=== PATIENT | female | born 1975 | race Native Hawaiian/Other Pacific Islander ===

== ENCOUNTER 2025-03-26 13:11 | Emergency (ER) | payer MEDICAID, SELFPAY ==
[2025-03-26 13:13] VITALS: BMI 21.1
[2025-03-26 13:24] VITALS: BP 132/83; PULSE 65; RESP 17; TEMP 36.6; O2SAT 100; BMI 21.1
--- NOTE | 2025-03-26 13:31 | EKG_ITS ---
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
--- NOTE | 2025-03-26 13:31 | XR_ITS ---
Examination: CT chest, without intravenous contrast. CT abdomen, without intravenous contrast. CT pelvis, without intravenous contrast. 2-D sagittal and coronal reconstructions. 3-D reconstructions. Date and time of exam:March 26, 2025 1438 hours INDICATIONS: Chest pain radiating to the back with abdomen pain beginning 2 days ago CTDI vol (mgy) 6.53 DLP (MGycm)459 Technique: Multiple CT images, 3.0 mm slice thickness, obtained chest, abdomen, pelvis, with the high-resolution 64 slice scanner.. Sagittal and coronal 2-D reconstructions are obtained. 3-D reconstructions Low dose protocols were performed. One or more of the following dose reduction techniques were used; automated exposure control, adjustment of the mA and/or KV according to patient size, use of iterative reconstruction technique. Findings: 6 mm right thyroid nodule No thoracic aortic aneurysm dilatation Pulmonary artery segments are not enlarged No paratracheal tracheobronchial or bronchopulmonary adenopathy No pneumonia or pulmonary edema or pleural disease No visualized liver or splenic lesion Gallbladder wall appears thickened and edematous with sludge versus stones No pancreatic or adrenal mass Severe scarring both kidneys, no hydronephrosis or ureteral calculi No pericecal inflammatory change No diverticulitis Atrophic uterus Bladder intact Grade 1 anterolisthesis L5 on S1 IMPRESSION: 6 mm right thyroid nodule, recommend elective thyroid sonography follow-up No pneumonia or pulmonary edema or pleural disease Recommend hepatobiliary sonography to confirm acute cholecystitis Severe renal parenchymal scar formation, no hydronephrosis renal or ureteral calculi
--- NOTE | 2025-03-26 13:31 | PD.EDRME ---
Rapid Medical Screening Exam RME Arrival date/time: 03/26/25 13:11 49-year-old female presents to the emergency department today for complaints of back pain, chest pain and abdominal pain Chief Complaint: Back Pain/Injury Time Seen by Provider: 03/26/25 13:26 Vital signs: Vital Signs Temperature 97.8 F 03/26/25 13:24 Pulse Rate 65 03/26/25 13:24 Respiratory Rate 17 03/26/25 13:24 Blood Pressure 132/83 H 03/26/25 13:24 Pulse Oximetry (%) 100 03/26/25 13:24 Oxygen Delivery Method Room Air 03/26/25 13:24
[2025-03-26 13:54] LABS: Collection Type, Urine Clean Catch
[2025-03-26 14:06] LABS: HCG Qualitative,Urine Negative
[2025-03-26 14:06] LABS: Basophils % (Auto) 0 % (0-2.5); Eosinophils % (Auto) 0 % (0-10); Hemoglobin 13.5 g/dL (12.0-16.0); Immature Granulocytes % (Auto) 1 % (0-0); Immature Granulocytes Auto 0.07 Thou/mm3 (0.00-0.00); Lymphocytes # (Auto) 1.1 Thou/mm3 (1.0-4.8); Lymphocytes % (Auto) 9 % (10-50); Mean Corpuscular HGB Conc 34.6 g/dl (31.0-37.0); Mean Corpuscular Volume 84 fL (80-100); Monocytes # (Auto) 0.8 Thou/mm3 (0.0-0.8); Monocytes % (Auto) 6 % (0-12); Neutrophils # (Auto) 10.9 Thou/mm3 (1.8-7.7); Neutrophils % (Auto) 84 % (37-80); Nucleated Red Blood Cell % 0 /100 WBC (0); Platelet Count 256 Thou/mm3 (140-440); Red Blood Count 4.65 Miln/mm3 (4.00-5.20)
[2025-03-26 14:24] LABS: Alanine Aminotransferase 12 U/L (10-49); Albumin, Serum 4.4 gm/dL (3.5-5.0); Albumin/Globulin Ratio 1.3 (1.2-2.2); Alkaline Phosphatase 98 U/L (46-116); Anion Gap 7 (7-16); Aspartate Amino Transferase 11 U/L (0-34); BUN/Creatinine Ratio 23 Ratio (12-20); Bilirubin,Total 0.4 mg/dL (0.3-1.2); Blood Urea Nitrogen 14 mg/dL (9-23); Calcium 8.8 mg/dL (8.3-10.6); Calcium (Corrected) 8.8 mg/dL (8.5-10.1); Carbon Dioxide 29.8 mMol/L (20.0-31.0); Chloride 99 mMol/L (98-107); Creatinine (Component) 0.6 mg/dL (0.6-1.3); Estimated Creatinine Clearance 107.2 mL/min (>60); Globulin 3.4 gm/dL (2.3-3.5); Glucose 120 mg/dL (74-106); Lipase 36 U/L (12-53); Osmolality,Calculated 273 (275-295); Potassium 4.1 mMol/L (3.4-5.1); Sodium 136 mMol/L (136-145); Total Protein 7.8 gm/dL (5.7-8.2); Troponin I < 0.002 ng/mL (0.0-0.045); eGFR > 60 See Note
[2025-03-26 15:27] VITALS: BP 132/82; PULSE 69; RESP 17; TEMP 36.8; O2SAT 99
[2025-03-26 15:37] LABS: Bacteria,Urine Rare; Bilirubin,Urine Negative (Negative); Blood,Urine Trace-Intact (Negative); Clarity,Urine Clear (Clear/Hazy); Color,Urine Lt Yellow (Lt Yel-Yel); Glucose, Urine Negative (Negative); Ketones,Urine Negative (Negative); Leukocyte Esterase,Urine 2+ (Negative); Nitrite,Urine Negative (Negative); PH,Urine 7.5 (5.0-7.0); Protein,Urine Negative (Neg - Trace); RBC,Urine 2 /hpf (0-3); Squamous Epithelial Cell,Urine 1 /hpf (0-5); Urobilinogen,Urine 0.2 mg/dL (0.0-1.0); WBC,Urine 2 /hpf (0-5)
[2025-03-26 15:38] LABS: Culture Indicated,Urine Yes
--- NOTE | 2025-03-26 17:05 | EDNOTE_ITS ---
<Statement entered by Michelle Sen MD - 04/06/25 06:15> As co-signing physician, I was present and available for consult prn. I concur with the plan and care as documented by the midlevel provider. ED Back Injury Pain RME/HPI General Chief Complaint: Back Pain/Injury Stated Complaint: BACK PAIN RADIATING TO CHEST & ABDOMEN Time Seen by Provider: 03/26/25 13:26 Arrival date/time: 03/26/25 13:11 RME / HPI RME / HPI Narrative: 49-year-old female patient with no significant medical history, came in for evaluation regarding upper back pain. Onset of symptoms earlier today as upper back pain, described as dull ache, severity moderate. Pains radiates to the front and upper abdomen. Patient denies any shortness of breath denies any tachycardia. Denies any fever. Denies any trauma to the back denies any other complaints. No medications taken prior to arrival. Related Data Previous Rx's ?Medication ?Instructions ?Recorded cyclobenzaprine 10 mg tablet 10 mg PO TID PRN muscle s pasm #20 03/26/25 tabs tramadol 37.5 mg-acetaminophen 325 1 tab PO BID PRN pa in #20 tabs 03/26/25 mg tablet tramadol 37.5 mg-acetaminophen 325 1 tab PO Q6H PRN pa in 5 days #20 25 mg tablet tabs Allergies Allergy/AdvReac Type Severity Reaction Status Date / Time Sulfa (Sulfonamide Allergy Verified 03/26/25 13:13 Antibiotics) Review of Systems Review of Systems Narrative Review of Systems: Review of system reviewed and within normal limits except mentioned in HPI ED Exam Narrative Physical exam: VITAL SIGNS: Reviewed. GENERAL APPEARANCE: Alert and interactive, follows commands, no acute distress, HEAD AND FACE: Non-traumatic. ENT: PERRL, pink conjunctivitis, eyelid no trauma, Mucous membrane moist. NECK: Supple, nontender, no nuchal rigidity. CHEST: No tenderness, no crepitus, no paradoxical movement, no retractions. LUNGS: Clear, well ventilated, symmetric, no rales, no wheezing, no ronchi, no stridor, good breath sounds bilaterally. HEART: Regular rate, regular rhythm, no murmur, no gallops. ABDOMEN: Soft, positive bowel sounds, nondistended, no guarding, nontender, no r ebound, no masses, RECTAL: Deferred. GENITAL: Deferred. NEUROLOGICAL: Gross motor function intact sensory function intact, Appropriate for age. MUSCULOSKELETAL: Upper back tenderness, no redness no swelling, full range of motion. EXTREMITIES: Nontender, full range of motion. SKIN: Color pink, dry, no rash, no lacerations, no abrasions, no contusions. LYMPHATICS: Deferred. Course Quality Measures none Orders Category Date Time Status EKG (ED ONLY) *Do not use* NOW Care 03/26/25 13:[address] chest abdomen pelvis wo Stat Exams 03/26/25 13:31 Completed EKG (ED Only) Stat Exams 03/26/25 13:31 Draft CBC Stat Lab 03/26/25 13:50 Completed Comprehensive Metabolic Panel Stat Lab 03/26/25 13:50 Completed HCG Qualitative,Urine Stat Lab 03/26/25 13:47 Completed Lipase Stat Lab 03/26/25 13:50 Completed Troponin I Stat Lab 03/26/25 13:50 Completed UA, C/S IF [Urinalysis, C/S if Indicated] Stat Lab 03/26/25 13:47 Completed Urine Culture Stat Lab 03/26/25 13:47 Received CYCLObenzaPRINE [Flexeril] Med 03/26/25 16:56 Discontinued 10 mg PO X1 ONE Ketorolac Inj [Toradol Inj] Med 03/26/25 16:56 Discontinued 30 mg IM X1 ONE Vital Signs Vital signs: Vital Signs Temperature 97.8 F 03/26/25 13:24 Pulse Rate 65 03/26/25 13:24 Respiratory Rate 17 03/26/25 13:24 Blood Pressure 132/83 H 03/26/25 13:24 Pulse Oximetry (%) 100 03/26/25 13:24 Oxygen Delivery Method Room Air 03/26/25 13:24 Back Pain / Injury MDM Narrative MDM Narrative:: 49-year-old female patient with no significant medical history, came in for evaluation regarding upper back pain. Onset of symptoms earlier today as upper back pain, described as dull ache, severity moderate. Pains radiates to the front and upper abdomen. Patient denies any shortness of breath denies any tachycardia. Denies any fever. Denies any trauma to the back denies any other complaints. No medications taken prior to arrival. CBC showed slight leukocytosis of 1300. CMP unremarkable troponin is normal urinalysis no UTI EKG showed normal sinus rhythm, ventricular rate of 65 bpm, no ST segment elevation or depression noted. CT scan of the chest abdomen and pelvis showed 6 mm right thyroid nodule, recommend elective thyroid sonography follow-up No pneumonia or pulmonary edema or pleural disease Recommend hepatobiliary sonography to confirm acute cholecystitis Severe renal parenchymal scar formation, no hydronephrosis renal or ureteral calculi Patient received Toradol IM and Flexeril with significant improvement pain Patient was advised to return to emergency room for worsening of symptoms. Patient agrees with the plan. Patient data External records reviewed:: None Clinical information provided by:: patient Social determinants that could affect healthcare access:: none Patient has the following chronic illnesses:: None How is presenting disease/condition affected by chronic disease/condition?: no chronic disease Evaluation data The following diagnostics were reviewed and interpreted by me:: lab results, radiology exam(s) and EKG tracing(s) Lab and/or radiology exams considered but not ordered:: None Interpretation Summary: See results MDM Medications / Prescriptions Medications or Prescriptions considered but not ordered:: None Medication administrations:: Medication Administration History Discontinued Medications Cyclobenzaprine HCl (Cyclobenzaprine 5 Mg Tablet) 10 mg PO X1 ONE Stop: 03/26/25 16:57 Ketorolac Tromethamine (Ketorolac Inj 60 Mg/2 Ml Vial) 30 mg IM X1 ONE Stop: 03/26/25 16:57 Toradol and Flexeril Consultations Consultation(s) initiated? (list below): No Diagnosis Differential diagnosis back pain/injury: thoracic back pain and other (Pneumonia, biliary colic renal colic) Most likely diagnosis given after review of the tests above:: Thoracic back pain Admission Indicated Admission indicated?: not indicated Admission Request Was there a request for admission?: No Disposition Plan Disposition Plan: Discharge Discharge Attestation Discharge Attestation: The patient was given an opportunity to ask questions and understood the discharge instructions. Discharge instructions specifically effects, indications for sooner follow up or return to the emergency department, and the expected course of current diagnosis. Patient condition: Stable Discharge Plan Plan Patient Disposition: HOME (Self Care) Discharge Disposition comment: stable Prescriptions/Referrals Prescriptions/Med Rec: New tramadol-acetaminophen 37.5-325 mg tablet 1 tab PO BID PRN (Reason: pain) Qty: 20 0RF cyclobenzaprine 10 mg tablet 10 mg PO TID PRN (Reason: muscle spasm) Qty: 20 0RF tramadol-acetaminophen 37.5-325 mg tablet 1 tab PO Q6H PRN (Reason: pain) 5 Days Qty: 20 0RF Referrals: No Primary/Family,Physician [Primary Care Provider] - In 1 week Problem List Clinical Impression: Thoracic back pain Patient/Caregiver Discharge Instructions Discharge Activity: activity as tolerated Education Materials: Medicine for Pain, ED Back Pain (Acute or Chronic) Additional Instructions: Thank you for the opportunity for serving you today. You are stable for discharged . You are advised to: Follow-up with your PCP in 1 to 2 days Return to ED for worsening of symptoms Increase oral fluids Take medication as prescribed Print Language: Slovak Stand Alone Forms: Yeni Award Info., Patient Portal Info Letter RENITA/LA Supervising Physician RENITA/LA Supervising Physician: MD Ravin
[2025-03-26] MEDS: KETOROLAC INJ 60 MG/2 ML VIAL 30 MG IM (17:11)
[2025-03-26] MEDS: CYCLObenzaPRINE 5 MG TABLET 10 MG PO (17:11)
[2025-03-26 17:17] VITALS: BP 124/75; PULSE 77
== END 2025-03-26 17:18 | disposition home or self-care (01) ==
PROVIDERS: Nurse Practitioner Primary Care; Emergency Provider Emergency Medicine
DX: M54.6 Pain in thoracic spine (principal); E04.1 Nontoxic single thyroid nodule; N28.89 Other specified disorders of kidney and ureter; R94.31 Abnormal electrocardiogram [ECG] [EKG]; R07.9 Chest pain, unspecified; D72.829 Elevated white blood cell count, unspecified
CPT/HCPCS: 36415; 71250; 74176; 80053; 81001; 81025; 83690; 84484; 85025; 87077; 87086; 87186; 93005; 96372; 99284; J1885; A9270

== ENCOUNTER → 2025-04-16 | Outpatient (CLI) | payer MEDICAID, SELFPAY ==
--- NOTE | 2025-04-16 09:15 | XR_ITS ---
Examination: Thyroid sonography complete TECHNIQUE: Grayscale sonographic images thyroid lobes Date and time: April 16, 2025 0921 hours INDICATIONS: CT chest March 26, 2025 6 mm right thyroid nodule FINDINGS: Right thyroid 4.6 cm Upper pole cyst 3 x 3 mm Complex lower pole cyst 11 x 9 mm Left thyroid 4.3 cm Upper pole nodule 7 x 6 mm Lower pole cyst 4 x 5 mm IMPRESSION: Small upper pole left thyroid nodule
== END | disposition home or self-care (01) ==
LOC: CDIM 09:07
PROVIDERS: PCP Nurse Practitioner Family; Referring Provider Nurse Practitioner Family; Visit Provider Nurse Practitioner Family
DX: E04.1 Nontoxic single thyroid nodule (principal)
CPT/HCPCS: 76536

== ENCOUNTER → 2025-04-26 | Outpatient (CLI) | payer MEDICAID, SELFPAY ==
--- NOTE | 2025-04-26 09:42 | XR_ITS ---
Examination: Abdomen sonogram, complete Date and time of exam: April 26, 2025 0951 hours INDICATIONS: Diagnosis cholecystitis. Technique: Multiple real-time grayscale transabdominal sonographic images of the abdomen have been obtained. Findings: Multiple gallstones Gallbladder wall is thickened 0.7 cm with edema Common bile duct 0.4 cm Pancreatic head 1.4 cm Aorta not enlarged Liver 15.7 cm no focal liver lesions Normal hepatopedal portal venous flow Patent IVC Right kidney 8.6 cm in the cortex 1.8 cm Left kidney 9.3 cm cortex 1.9 cm 14 x 16 mm lower pole left renal cyst No hydronephrosis Spleen 9.2 cm IMPRESSION: Calculus cholecystitis
== END | disposition home or self-care (01) ==
LOC: CDIM 09:21
PROVIDERS: PCP Nurse Practitioner Family; Referring Provider Nurse Practitioner Family; Visit Provider Nurse Practitioner Family
DX: K80.10 Calculus of gallbladder with chronic cholecystitis without obstruction (principal); N28.1 Cyst of kidney, acquired
CPT/HCPCS: 76700

== ENCOUNTER 2025-05-16 17:51 | Inpatient (IN) | payer MEDICAID, SELFPAY ==
[2025-05-16 18:04] VITALS: BP 127/79; PULSE 78; RESP 18; TEMP 36.9; O2SAT 97; BMI 21.4
--- NOTE | 2025-05-16 18:22 | XR_ITS ---
Examination: CT abdomen and pelvis without contrast. Coronal 3-D reconstructions. Sagittal 2-D reconstructions. Date and time of exam:May 16, 2025, 1901 hours Comparison March 26, 2025 INDICATIONS: Right-sided flank pain today CTDI: vol (mGy): 6.85 DLP: (mGycm): 346 Technique: Axial images of the abdomen have been obtained, 3 mm slice thickness Intravenous contrast material has not been administered. Low dose protocols were performed. One or more of the following dose reduction techniques were used; automated exposure control, adjustment of the mA and/or KV according to patient size, use of iterative reconstruction technique. Findings: No focal liver or splenic lesions Gallbladder wall is significantly abnormally thickened Common bile duct is enlarged, 9 mm Suspicious for mild edema about the pancreas on this noncontrast study Severe scarring right kidney moderate scarring left kidney Subcentimeter periaortic lymph nodes No bowel obstruction No pericecal inflammatory change No pelvic mass Contracted urinary bladder Moderate disc narrowing L5-S1 IMPRESSION: Consider MRCP follow-up to confirm acute cholecystitis and to exclude stricture or stones in the enlarged common bile duct as well as to exclude pancreatitis Severe right renal scarring
[2025-05-16 19:10] LABS: Collection Type, Urine Clean Catch
[2025-05-16 19:14] LABS: HCG Qualitative,Urine Negative
[2025-05-16 19:17] LABS: Basophils # (Auto) 0.0 Thou/mm3 (0.0-0.2); Basophils % (Auto) 1 % (0-2.5); Eosinophils # (Auto) 0.2 Thou/mm3 (0.0-0.5); Eosinophils % (Auto) 2 % (0-10); Hematocrit 38.9 % (36.0-46.0); Hemoglobin 12.7 g/dL (12.0-16.0); Immature Granulocytes Auto 0.03 Thou/mm3 (0.00-0.00); Lymphocytes # (Auto) 0.8 Thou/mm3 (1.0-4.8); Lymphocytes % (Auto) 10 % (10-50); Mean Corpuscular HGB Conc 32.6 g/dl (31.0-37.0); Mean Corpuscular Hemoglobin 28.2 pg (25.0-35.0); Mean Corpuscular Volume 86 fL (80-100); Monocytes # (Auto) 0.8 Thou/mm3 (0.0-0.8); Monocytes % (Auto) 9 % (0-12); Neutrophils # (Auto) 6.4 Thou/mm3 (1.8-7.7); Neutrophils % (Auto) 78 % (37-80); Nucleated Red Blood Cell # 0.00 Thou/mm3 (0.00-0.00); Nucleated Red Blood Cell % 0 /100 WBC (0); Platelet Count 209 Thou/mm3 (140-440); RDW Standard Deviation 41.1 fL (36.4-46.3); Red Blood Count 4.51 Miln/mm3 (4.00-5.20); White Blood Count 8.2 Thou/mm3 (3.6-11.0)
[2025-05-16 19:21] LABS: Amorphous Crystals,Urine Present (Absent); Bacteria,Urine Rare; Bilirubin,Urine Negative (Negative); Blood,Urine Trace (Negative); Clarity,Urine Clear (Clear/Hazy); Color,Urine Yellow (Lt Yel-Yel); Glucose, Urine Negative (Negative); Ketones,Urine Negative (Negative); Leukocyte Esterase,Urine Positive (Negative); Nitrite,Urine Negative (Negative); PH,Urine 6.5 (5.0-7.0); Protein,Urine Negative (Neg - Trace); RBC,Urine 4 /hpf (0-3); Specific Gravity,Urine 1.012 (1.001-1.035); Squamous Epithelial Cell,Urine 2 /hpf (0-5); Urobilinogen,Urine Negative mg/dL (0.0-1.0); WBC,Urine 7 /hpf (0-5)
[2025-05-16 19:48] LABS: Alanine Aminotransferase 452 U/L (10-49); Albumin, Serum 4.5 gm/dL (3.5-5.0); Albumin/Globulin Ratio 1.3 (1.2-2.2); Alkaline Phosphatase 757 U/L (46-116); Anion Gap 9 (7-16); Aspartate Amino Transferase 98 U/L (0-34); BUN/Creatinine Ratio 20 Ratio (12-20); Bilirubin,Total 1.6 mg/dL (0.3-1.2); Blood Urea Nitrogen 14 mg/dL (9-23); Calcium 9.8 mg/dL (8.3-10.6); Calcium (Corrected) 9.8 mg/dL (8.5-10.1); Carbon Dioxide 28.4 mMol/L (20.0-31.0); Chloride 103 mMol/L (98-107); Creatinine (Component) 0.7 mg/dL (0.6-1.3); Estimated Creatinine Clearance 94.8 mL/min (>60); Globulin 3.4 gm/dL (2.3-3.5); Glucose 120 mg/dL (74-106); Osmolality,Calculated 280 (275-295); Potassium 4.0 mMol/L (3.4-5.1); Sodium 140 mMol/L (136-145); Total Protein 7.9 gm/dL (5.7-8.2); eGFR > 60 See Note
--- NOTE | 2025-05-16 20:43 | XR_ITS ---
Examination: Abdomen sonogram, Limited Date and time of exam: May 16, 2025 10:14 PM INDICATIONS: Onset abdominal pain Technique: Real-time zheng scale transabdominal sonographic images of the upper abdomen obtained. Findings: Gallstones Gallbladder wall is thickened 0.6 cm Common bile duct 0.7 cm no stones Pancreatic head 2.4 cm Liver 16.1 cm fatty infiltration Normal hepatopedal portal venous flow Patent IVC IMPRESSION: Findings most consistent with acute calculus cholecystitis Consider MRCP follow-up to assess the enlarged common bile duct
[2025-05-16 21:54] LABS: Lipase 30888 U/L (12-53)
[2025-05-17] VITALS (14 sets, daily range): BP systolic 101–132; BP diastolic 66–81; PULSE 57–73; RESP 14–19; TEMP 36.2–37.6; O2SAT 95–100
--- NOTE | 2025-05-17 | XR_ITS ---
MRI abdomen, without contrast. MRCP Date and time of exam: May 17, 2025, 0653 hours INDICATIONS: Epigastric right upper abdominal pain one week, CT abdomen and pelvis yesterday gallbladder wall thickened common bile duct enlarged Technique: Multiple axial and coronal images of the abdomen have been obtained with the Siemens 1.5T MRI scanner. Images obtained included T1 weighted transverse images, T2-weighted transverse images, T2-weighted transverse images fat-suppressed, T2 weighted haste fat suppressed transverse images, T1 weighted images, in and out of phase images, T2-weighted coronal images, breath hold, T2 weighted haze coronal images as well as T2 weighted coronal thick slab images, MRCP. Findings: Intrahepatic biliary tract dilatation Multiple gallstones Gallbladder wall is thickened and edematous Common hepatic duct 5 mm, no common hepatic or common bile duct stones Spleen is not enlarged No dilated pancreatic duct No peripancreatic edema Aorta normal size No hydronephrosis No ascites IMPRESSION: Acute calculus cholecystitis No common hepatic or common bile duct stones
--- NOTE | 2025-05-17 00:07 | EDNOTE_ITS ---
ED Abdominal Pain RME/HPI General Chief Complaint: General Adult/Misc Complain Stated complaint: PCP SENT FOR GALLBLADDER REMOVAL Time seen by provider: 05/16/25 18:17 Arrival date/time: 05/16/25 17:51 RME / HPI RME / HPI narrative: This section includes all my notes and documentations, including HPI, PE, and ED course. Jaime Pearson MD HPI: 50yo female with no significant past medical history presents to the ED for complaints of epigastric, RUQ, and back pain. Patient was seen by her PCP a couple weeks ago and was diagnosed with cholecystitis, but is currently pending referral to general surgery. Her pain has significantly worsened the last few days. Patient does have nausea. No vomiting, decreased appetite, fever, chills or any other associated symptoms. She does not drink alcohol. She reports occasional episodes of severe pain that spontaneously goes away. Currently, she reports no severe pain. No other complaints reported. ROS: All negative except as documented in HPI. Physical Exam: General: Alert and oriented. No acute distress when remaining still. Eyes: Conjunctivae and lids clear. ENT: No nasal congestion. Neck: Supple. Heart: RRR. Lungs: No respiratory distress. Good air movement. No rhonchi, wheezing, rales. Abdomen: Soft and nontender. Normal bowel sounds. No distension. No rebound or guarding. Back: No CVA tenderness. Skin: Warm and dry. Neuro: Alert and oriented X 3. I reviewed all diagnostic test results. My review of the US gallbladder report is acute calculus cholecystitis. My review of the CT abdomen pelvis report is cholecystitis. Blood tests remarkable for Total Bilirubin 1.6, AST 98, ALT 452, Alkaline Phosphatase 757, Lipase 67454, Amylase 2553. UA unremarkable. At this point, diagnoses include cholecystitis, hepatitis, and pancreatitis. Treatment here included NS, Unasyn, and Flagyl. Patient declined pain medication. MRCP ordered. At 6 AM on 05/17/2025, the care of the patient was transferred to Dr. Tsai. Jaime Pearson MD Related Data Previous Rx's ?Medication ?Instructions ?Recorded cyclobenzaprine 10 mg tablet 10 mg PO TID PRN muscle s pasm #20 03/26/25 tabs tramadol 37.5 mg-acetaminophen 325 1 tab PO BID PRN pa in #20 tabs 03/26/25 mg tablet Allergies Allergy/AdvReac Type Severity Reaction Status Date / Time cephalexin (From Keflex) Allergy Verified 05/16/25 17:53 Sulfa (Sulfonamide Allergy Verified 05/16/25 17:53 Antibiotics) Review of Systems Review of Systems Systems Reviewed: All systems reviewed, normal except as documented Past Medical History Social History SMOKING STATUS: Never smoker ED Exam Narrative Physical exam: As noted in HPI. Course Quality Measures none Orders Category Date Time Status MRI Screening NOW Care 05/17/25 02:57 Active Saline [Insert IV] NOW Care 05/17/25 00:[address] abdomen pelvis wo con Stat Exams 05/16/25 18:22 Completed MR MRCP Stat Exams 05/17/25 Ordered US gall bladder Stat Exams 05/16/25 20:43 Completed Alcohol, Blood Medical Stat Lab 05/17/25 01:30 Completed Amylase Stat Lab 05/17/25 01:30 Completed Bilirubin,Direct Stat Lab 05/17/25 01:30 Completed CBC Stat Lab 05/16/25 18:47 Completed Comprehensive Metabolic Panel Stat Lab 05/16/25 18:47 Completed HCG Qualitative,Urine Stat Lab 05/16/25 18:40 Completed Lipase Stat Lab 05/16/25 18:47 Completed Magnesium Stat Lab 05/17/25 01:30 Completed PT [Prothrombin Time with INR] Stat Lab 05/17/25 01:30 Completed PTT [Partial Thromboplastin Time] Stat Lab 05/17/25 01:30 Completed Urinalysis Stat Lab 05/16/25 18:40 Completed Ampicillin/Sulbac Inj [Unasyn Inj] 1.5 gm Med 05/17/25 00:52 Discontinued SODIUM CHLORIDE 0.9% (Popper) [Ns 0.9% (P)] 50 ml IV X1 Ketorolac Inj [Toradol Inj] Med 05/17/25 00:41 Discontinued 15 mg IVP X1 ONE Morphine Inj Med 05/17/25 00:41 Discontinued 2 mg IVP X1 ONE Ondansetron Inj [Zofran Inj] Med 05/17/25 00:41 Discontinued 4 mg IVP X1 ONE Piper/Tazo 3.375 gm Premix [Zosyn] Med 05/17/25 00:43 Discontinued 3.375 gm in 50 ml IV X1 Sodium Chloride 0.9% 1000 ml [Ns] 1,000 ml Med 05/17/25 00:41 Discontinued IV 999 mls/hr metroNIDAZOLE/NS 500 MG IVPB [Flagyl 500 mg IV] Med 05/17/25 00:54 Discontinued 500 mg in 100 ml IV X1 Vital Signs Vital signs: Vital Signs Temperature 98.4 F 05/16/25 18:04 Pulse Rate 78 05/16/25 18:04 Respiratory Rate 18 05/16/25 18:04 Blood Pressure 127/79 05/16/25 18:04 Pulse Oximetry (%) 97 05/16/25 18:04 Oxygen Delivery Method Room Air 05/16/25 18:04 Abdominal Pain MDM MDM Narrative MDM Narrative:: Scribe Attestation: 05/17/25 - Slime, Arti Farmer am scribing for and in the presence of Dr. Pearson. 50yo female with no significant past medical history presents to the ED for complaints of epigastric, RUQ, and back pain. Patient was seen by her PCP a couple weeks ago and was diagnosed with cholecystitis, but is currently pending referral to general surgery. Her pain has significantly worsened the last few days. Patient does have nausea. No vomiting, decreased appetite, fever, chills or any other associated symptoms. She does not drink alcohol. No other co mplaints reported. Patient data External records reviewed:: [facility] previous records (Per chart review, patient has no relevant previous ED visits.) Clinical information provided by:: patient Social determinants that could affect healthcare access:: none Patient has the following chronic illnesses:: none How is presenting disease/condition affected by chronic disease/condition?: no chronic disease Evaluation data The following diagnostics were reviewed and interpreted by me:: lab results and radiology exam(s) Lab and/or radiology exams considered but not ordered:: none Interpretation Summary: I reviewed all diagnostic test results. My review of the US gallbladder report is acute calculus cholecystitis. My review of the CT abdomen pelvis report is cholecystitis. Blood tests remarkable for Total Bilirubin 1.6, AST 98, ALT 452, Alkaline Phosphatase 757, Lipase 02339, Amylase 2553. UA unremarkable. Medications / Prescriptions Medications or Prescriptions considered but not ordered:: none Medication administrations:: Medication Administration History Discontinued Medications Sodium Chloride (Ns) 1,000 mls @ 999 mls/hr IV .Q1H1M ONE Stop: 05/17/25 01:41 Last Infusion: 05/17/25 02:02 Dose: Infused Documented By: Admin: 05/17/25 00:52 Dose: 999 mls/hr Documented By: BAM Piperacillin/Tazobactam/Dextrose (Zosyn) 3.375 gm in 50 mls @ 100 mls/hr IV X1 ONE Stop: 05/17/25 01:12 Last Admin: 05/17/25 02:02 Dose: Not Given Documented By: CB Non-Admin Reason: Cancelled by Provider Ampicillin Sodium/Sulbactam (Sodium 1.5 gm/ Sodium Chloride) 50 mls @ 100 mls/hr IV X1 ONE Stop: 05/17/25 00:53 Last Infusion: 05/17/25 02:38 Dose: Infused Documented By: Admin: 05/17/25 02:04 Dose: 100 mls/hr Documented By: BAM Metronidazole (Flagyl 500 Mg Iv) 500 mg in 100 mls @ 200 mls/hr IV X1 ONE Stop: 05/17/25 01:23 Last Infusion: 05/17/25 01:42 Dose: Infused Documented By: Admin: 05/17/25 01:11 Dose: 200 mls/hr Documented By: BAM Ketorolac Tromethamine (Ketorolac Inj 30 Mg/Ml Vial) 15 mg IVP X1 ONE Stop: 05/17/25 00:42 Last Admin: 05/17/25 02:11 Dose: Not Given Documented By: BAM Non-Admin Reason: Patient Refused Morphine Sulfate (Morphine Sulf Inj 10 Mg/Ml Vial) 2 mg IVP X1 ONE Stop: 05/17/25 00:42 Last Admin: 05/17/25 02:11 Dose: Not Given Documented By: BAM Non-Admin Reason: Patient Refused Ondansetron HCl (Ondansetron Inj 2 Mg/Ml Inj 2 Ml) 4 mg IVP X1 ONE; Protocol Stop: 05/17/25 00:42 Last Admin: 05/17/25 02:11 Dose: Not Given Documented By: BAM Non-Admin Reason: Patient Refused Treatment here included NS, Unasyn, and Flagyl. Patient declined pain medication. Consultations Consultation(s) initiated? (list below): No Diagnosis Differential diagnosis abdominal pain: acute appendicitis, calculus of kidney, constipation, diverticulitis, endometriosis, gastroenteritis, pancreatitis, small bowel obstruction and other (Biliary colic, cholangitis, PUD, GERD, gastritis) Most likely diagnosis given after review of the tests above:: Cholecystitis, hepatitis, and pancreatitis. Admission Indicated Admission indicated?: not indicated Explain why admission is indicated or not indicated:: Complete diagnostic tests pending. Admission Request Was there a request for admission?: No Disposition Plan Disposition Plan: other (specify) (Signed out [facility] Dr[facility] Tsai at 0600 [facility] Discharge Plan Prescriptions/Referrals Prescriptions/Med Rec: No Action tramadol-acetaminophen 37.5-325 mg tablet 1 tab PO BID PRN (Reason: pain) Qty: 20 0RF cyclobenzaprine 10 mg tablet 10 mg PO TID PRN (Reason: muscle spasm) Qty: 20 0RF Referrals: Vilma Ortiz IT SYSTEMS ANALYST [Primary Care Provider] - In 1 week Problem List Clinical Impression: Cholecystitis, Pancreatitis, Hepatitis Patient/Caregiver Discharge Instructions Print Language: Wolof
--- NOTE | 2025-05-17 00:07 | PD.EDRME ---
Rapid Medical Screening Exam RME Arrival date/time: 05/16/25 17:51 This is a case of 50-year-old female who came in in the emergency room due to right flank pain radiating to the abdomen for 1 month patient was seen here 04/26/2025 where she was diagnosed to have calculus cholecystitis patient was sent home still awaiting to be seen by the general surgeon worsening of the pain 3 days prior to arrival in the emergency room associated with nausea vomiting this patient decided to sought consult here in the emergency room Chief Complaint: General Adult/Misc Complain Time Seen by Provider: 05/16/25 18:17 Vital signs: Vital Signs Temperature 98.4 F 05/16/25 18:04 Pulse Rate 78 05/16/25 18:04 Respiratory Rate 18 05/16/25 18:04 Blood Pressure 127/79 05/16/25 18:04 Pulse Oximetry (%) 97 05/16/25 18:04 Oxygen Delivery Method Room Air 05/16/25 18:04
[2025-05-17] MEDS: SODIUM CHLORIDE 0.9% 1000 ML 1,000 ML 999 ML IV (00:52)
[2025-05-17] MEDS: metroNIDAZOLE/NS 500 MG IVPB 500 MG/100 ML BAG 200 MG IV (01:11)
[2025-05-17] MEDS: AMPICILLIN/SULBAC INJ 1.5 GM in SODIUM CHLORIDE 0.9% (Popper) 50 ML IV (02:04)
[2025-05-17 02:08] LABS: INR 1.0 (0.9-1.3); Partial Thromboplastin Time 29.0 Seconds (22.0-36.0); Prothrombin Time 11.0 Seconds (9.0-12.2)
[2025-05-17 02:13] LABS: Alcohol, Blood Medical < 3.0 mg/dL (0-10.0); Bilirubin,Direct 0.4 mg/dL (0.0-0.3); Magnesium 2.2 mg/dL (1.6-2.6)
[2025-05-17 02:23] LABS: Amylase 2553 U/L (30-118)
[2025-05-17 08:41] LABS: Basophils # (Auto) 0.0 Thou/mm3 (0.0-0.2); Basophils % (Auto) 1 % (0-2.5); Eosinophils # (Auto) 0.2 Thou/mm3 (0.0-0.5); Eosinophils % (Auto) 4 % (0-10); Hematocrit 36.0 % (36.0-46.0); Hemoglobin 11.7 g/dL (12.0-16.0); Immature Granulocytes Auto 0.02 Thou/mm3 (0.00-0.00); Lymphocytes # (Auto) 1.4 Thou/mm3 (1.0-4.8); Lymphocytes % (Auto) 22 % (10-50); Mean Corpuscular HGB Conc 32.5 g/dl (31.0-37.0); Mean Corpuscular Hemoglobin 28.5 pg (25.0-35.0); Mean Corpuscular Volume 88 fL (80-100); Monocytes # (Auto) 0.6 Thou/mm3 (0.0-0.8); Monocytes % (Auto) 9 % (0-12); Neutrophils # (Auto) 4.1 Thou/mm3 (1.8-7.7); Neutrophils % (Auto) 65 % (37-80); Nucleated Red Blood Cell # 0.00 Thou/mm3 (0.00-0.00); Nucleated Red Blood Cell % 0 /100 WBC (0); Platelet Count 226 Thou/mm3 (140-440); RDW Standard Deviation 42.6 fL (36.4-46.3); Red Blood Count 4.10 Miln/mm3 (4.00-5.20); White Blood Count 6.4 Thou/mm3 (3.6-11.0)
--- NOTE | 2025-05-17 08:45 | PC.NURSE ---
Report received from pm nurse. Patient lying in [facility] quietly, no distress noted. Patient had MRCP and is awaiting repeat lab work to be resulted. Patient denies pain, no c/o n/v/d. Skin warm dry and pink, call light within reach. Patient has no other needs at this time.
[2025-05-17 09:16] LABS: Alanine Aminotransferase 338 U/L (10-49); Albumin, Serum 4.0 gm/dL (3.5-5.0); Albumin/Globulin Ratio 1.3 (1.2-2.2); Alkaline Phosphatase 633 U/L (46-116); Anion Gap 9 (7-16); Aspartate Amino Transferase 65 U/L (0-34); BUN/Creatinine Ratio 19 Ratio (12-20); Bilirubin,Total 0.9 mg/dL (0.3-1.2); Blood Urea Nitrogen 13 mg/dL (9-23); Calcium 9.1 mg/dL (8.3-10.6); Calcium (Corrected) 9.1 mg/dL (8.5-10.1); Carbon Dioxide 27.1 mMol/L (20.0-31.0); Chloride 107 mMol/L (98-107); Creatinine (Component) 0.7 mg/dL (0.6-1.3); Estimated Creatinine Clearance 94.8 mL/min (>60); Globulin 3.2 gm/dL (2.3-3.5); Glucose 94 mg/dL (74-106); Lipase 1839 U/L (12-53); Osmolality,Calculated 285 (275-295); Potassium 3.6 mMol/L (3.4-5.1); Sodium 143 mMol/L (136-145); Total Protein 7.2 gm/dL (5.7-8.2); Triglycerides 87 mg/dL (30-150); eGFR > 60 See Note
--- NOTE | 2025-05-17 09:30 | PC.NURSE ---
Dr. Llanes at bedside, consulting with patient.
--- NOTE | 2025-05-17 09:35 | EDNOTE_ITS ---
Emergency Room Addendum Addendum Narrative: 0600: Care assumed from Dr. Pearson, the previous shift emergency physician. Past medical, surgical, social and family history reviewed. Vitals and home medications reviewed. I will assume the care of the patient at this time, pending MRCP and final disposition. Please refer to the emergency department record for history and examination from initial visit.?The following addendum documentation note is intended to reflect any pending information, findings, or radiology results not included in the patient?s initial chart. I spoke with surgeon Dr. Llanes. Discussed patients PMHx, HPI, ED course, exam findings, labs, and radiology results. States he will come evaluate the patient in the ED. Agrees to consult. I spoke with residents working with hospitalist Dr. Forte. Discussed patients PMHx, HPI, ED course, exam findings, labs, and radiology results. The hospitalist agree to accept the patient for admission. RADIOLOGY Ordering Physician: Jaime Pearson MD Date of Service: 05/17/25 Procedure(s): MR MRCP Accession Number(s): [id number] cc: Jaime Pearson MD; Kamaljit Heller MD; Vilma Ortiz NP~ MRI abdomen, without contrast. MRCP Date and time of exam: May 17, 2025, 0653 hours INDICATIONS: Epigastric right upper abdominal pain one week, CT abdomen and pelvis yesterday gallbladder wall thickened common bile duct enlarged Technique: Multiple axial and coronal images of the abdomen have been obtained with the Siemens 1.5T MRI scanner. Images obtained included T1 weighted transverse images, T2-weighted transverse images, T2-weighted transverse images fat-suppressed, T2 weighted haste fat suppressed transverse images, T1 weighted images, in and out of phase images, T2-weighted coronal images, breath hold, T2 weighted haze coronal images as well as T2 weighted coronal thick slab images, MRCP. Findings: Intrahepatic biliary tract dilatation Multiple gallstones Gallbladder wall is thickened and edematous Common hepatic duct 5 mm, no common hepatic or common bile duct stones Spleen is not enlarged No dilated pancreatic duct No peripancreatic edema Aorta normal size No hydronephrosis No ascites IMPRESSION: Acute calculus cholecystitis No common hepatic or common bile duct stones Dictated By: Kamaljit Heller MD Signed By: <Electronically signed by Kamaljit Heller MD in [place]>05/17/25 0739
[2025-05-17] MEDS: SODIUM CHLORIDE 0.9% 1000 ML 1,000 ML 150 ML IV ×2 (10:40→18:23)
--- NOTE | 2025-05-17 10:43 | PC.NURSE ---
Patient aware of plan of care, patient admitted to M/T, awaiting bed on floor, patient denies pain, call light within reach. Patient has no other needs at this time.
--- NOTE | 2025-05-17 13:54 | PD.SURCONS ---
HPI Consult details Consult date: 05/17/25 Reason for consultation narrative: The patient was seen in consultation because of gallstone pancreatitis History of present illness: Patient has had the pain for 2 to 3 days in the epigastric region. She was diagnosed with gallstones 2 weeks ago. She had no vomiting. Past Medical History Past Medical History CARDIAC: Negative Congestive Heart Failure RESPIRATORY: Negative Respiratory Disorders or Chronic Obstructive Pulmonary Disease (COPD) GENITOURINARY: Negative Renal Disease ENDOCRINE: Negative Diabetes Mellitus Type 1 or Diabetes Mellitus Type 2 Social History SMOKING STATUS: Never smoker Meds Home Medications and Allergies Allergies Allergy/AdvReac Type Severity Reaction Status Date / Time cephalexin (From Keflex) Allergy Verified 05/16/25 17:53 Sulfa (Sulfonamide Allergy Verified 05/16/25 17:53 Antibiotics) Exam Vital Signs Temp Pulse Resp BP Pulse Ox O2 Del Method 97.6 F 64 17 113/67 98 Room Air 05/17/25 12:00 05/17/25 12:00 05/17/25 12:00 05/17/25 12:00 05/17/25 12:00 05/17/25 12:00 Narrative Exam Sickle examination revealed skin build is white female who is 5 foot 8 inches tall weighing 141 pounds. Constitutional Constitutional: no acute distress Routine Abdominal Exam Comments: Abdominal examination showed some epigastric tenderness but no other abnormality. Right upper quadrant is not tender Results Results: Laboratory Laboratory Narrative: Laboratory cells normal WBC. However she has a very high elevation of the alkaline phosphatase the liver enzymes are coming down Results: Imaging Imaging narrative: Ultrasound shows gallstones MRCP showed no common bile duct stone Assessment & Plan Additional Assessment Additional comments: Impression: Gallstone pancreatitis, resolving No evidence of common bile duct stone Plan Plan: Patient to arrange for laparoscopic cholecystectomy after the pancreatitis has resolved. Meanwhile I will get consultation from executive business coach to evaluate elevated alkaline phosphatase. Thank you
[2025-05-17] MEDS: HEPARIN SOD INJ 5000 UNIT/ML VIAL SC ×2 (15:20→21:40)
--- NOTE | 2025-05-17 16:18 | PC.LAC ---
Callled and spoke with advisory internship provider Dr. Cuevas, informed him patient requesting medication for h/a, tylenol and norco ordered, however, patient npo, asked him if ok to give po meds. Per advisory internship provider, Mason he will call me back shortly regarding patients request.
[2025-05-17] MEDS: ACETAMINOPHEN IVPB 1,000 MG/100 ML VIAL 250 MG IV (16:52)
--- NOTE | 2025-05-17 17:37 | ESHP_ITS ---
<Statement entered by Luda De La Rosa MD - 05/17/25 17:44> In summary: 50-year-old female with no PMHx, presenting with epigastric and right upper quadrant pain radiating to the back. Patiently was seen by PCP and has been referred for general surgery for possible cholecystitis. However, she came to the ED for worsening pain. Admission vitals and labs relatively stable with the exception of: Elevated lipase, amylase, and LFTs, and ALP. CT abdomen showed enlarged common bile duct, and severe right renal scarring, could not exclude stone and CBD or pancreatitis. Gallbladder ultrasound and MRCP consistent with acute calculus cholecystitis, no duct dilation. General surgery and GI, Dr. Wolff on board for possible ERCP. Continued on ZOSYN for cholecystitis, pain control and IVF for pancreatitis. General surgery will consider intervention once pancreatitis resolved. Case was discussed with attending physician. Luda De La Rosa DO PGY II This document was transcribed using voice recognition technology. Minor inaccuracies may be present. Documentation for date of: 05/17/25 HPI History of Present Illness History of present illness: Minda Silva is a 50yo Female with PMHx of HTN and chronic back pain who presents to the ED with worsening abdominal pain which is also present in her back for 3 days. Pain relief received in the ED cut the pain to 0/10 currently. Denies nausea, vomiting, or changes to her bowel movement habitus, or loss of appetite. Denies fever, chills. Patient states that previous CT imaging by her PCP for the evaluation of her back pain a few weeks ago revealed stones in the gallbladder while showing a normal vertebral column. At that time, her cholelithiasis was completely asymptomatic and was left to be watched. Allergies: cephalexin, sulfa drugs PMHx: HTN, chronic back pain for the past couple of years. PSHx: b/l breast reduction excision for hidradenitis SHx: Patient carlene alcohol use. States that she doesn't smoke, use tobacco products, or illicit drugs. Reason for admission: Patient reported severe epigastric pain and labs revealed markedly elevated lipase and amylase, meating diagnostic criteria for acute pancreatitis. MRCP showed acute calculus cholecystits with multiple gallstones in the gallbladder. Exam Vital Signs Temp Pulse Resp BP Pulse Ox O2 Del Method 97.6 F 69 14 119/69 97 Room Air 05/17/25 14:53 05/17/25 14:53 05/17/25 14:53 05/17/25 14:53 05/17/25 14:53 05/17/25 14:53 Narrative Exam General: Alert and oriented x3, No apparent distress. Skin: Intact, Warm, no rashes. HEENT: Normocephalic, Atraumatic. Normal neck range of motion, Supple. Trachea midline. Respiratory: Lungs are clear to auscultation, Breath sounds are equal bilaterally with equal chest expansion. Cardiovascular: RRR, normal S1, S2, No murmurs. Distal pulses 2+ Abdomen: Soft and nontender (pain sedated). Normal bowel sounds. No distension. No rebound or guarding. Musculoskeletal: No swelling, moving all 4 extremities with FROM Neurologic: Alert, Oriented, No focal deficits. Moving all 4 extremities spontaneously Psych: Thoughts linear and responses appropriate. Results: Labs 05/21/25 05:17 05/21/25 05:17 Labs: Short CBC 05/16/25 05/17/25 Range/Units 18:47 08:25 WBC 8.2 6.4 (3.6-11.0) Thou/mm3 Hgb 12.7 11.7 L (12.0-16.0) g/dL Hct 38.9 36.0 (36.0-46.0) % Plt Count 209 226 (140-440) Thou/mm3 [facility] 05/16/25 05/17/25 18:47 08:25 Sodium 140 143 Potassium 4.0 3.6 Chloride 103 107 Carbon Dioxide 28.4 27.1 BUN 14 13 Creatinine 0.7 0.7 Glucose 120 H 94 Calcium 9.8 9.1 Liver Function 05/16/25 05/17/25 05/17/25 Range/Units 18:47 01:30 08:25 Total Bilirubin 1.6 H 0.9 D (0.3-1.2) mg/dL Direct Bilirubin 0.4 H (0.0-0.3) mg/dL AST 98 H 65 H (0-34) U/L ALT 452 H 338 H (10-49) U/L Alkaline Phosphatase 757 H 633 H D (46-116) U/L Albumin 4.5 4.0 D (3.5-5.0) gm/dL Urine 05/16/25 Range/Units 18:40 Urine Color Yellow (Lt Yel-Yel) Urine Clarity Clear (Clear/Hazy) Urine pH 6.5 (5.0-7.0) Ur Specific [place] 1.012 (1.001-1.035) Urine Protein Negative (Neg - Trace) Urine Glucose (UA) Negative (Negative) Quality Measures Quality Measures none Medications Home Medications and Allergies Home Medications ?Medication ?Instructions ?Recorded ?Confirmed ?Type lisinopril 5 mg tablet 5 mg PO HS 05/18/25 05/18/25 History Allergies Allergy/AdvReac Type Severity Reaction Status Date / Time clindamycin Allergy Mild Rash Verified 05/18/25 20:43 cephalexin (From Keflex) Allergy Verified 05/18/25 20:43 Sulfa (Sulfonamide Allergy Verified 05/18/25 20:43 Antibiotics) Visit Medications Acetaminophen (Acetaminophen 325 Mg Tablet) 650 mg PO Q6H PRN PRN Reason: PAIN SCALE 1-3 (mild Stop: 06/16/25 09:51 Acetaminophen (Acetaminophen 325 Mg Tablet) 650 mg PO Q6H PRN PRN Reason: Fever >100.4 Stop: 06/16/25 09:51 Hydrocodone Bitart/Acetaminophen (Hydrocodone/Apap 10/325 Tab) 1 tab PO Q4HR PRN PRN Reason: PAIN SCALE 7-10 (Severe Stop: 05/22/25 09:51 Heparin Sodium (Porcine) (Heparin Sod Inj 5000 Unit/Ml Vial) 5,000 unit SC Q8HR [facility] Stop: 05/31/25 13:59 Last Admin: 05/17/25 15:20 Dose: 5,000 unit Sodium Chloride (Ns) 1,000 mls @ 150 mls/hr IV .Q6H40M [facility] Stop: 06/16/25 10:02 Last Admin: 05/17/25 10:40 Dose: 150 mls/hr Acetaminophen (Ofirmev Inj) 1,000 mg in 100 mls @ 250 mls/hr IV Q6HR [facility] Stop: 05/18/25 06:23 Last Admin: 05/17/25 16:52 Dose: 250 mls/hr Piperacillin/Tazobactam/Dextrose (Zosyn) 3.375 gm in 50 mls @ 12.5 mls/hr IV Q8HR [facility] Stop: 05/24/25 22:29 Piperacillin/Tazobactam/Dextrose (Zosyn) 3.375 gm in 50 mls @ 100 mls/hr IV X1 ONE Stop: 05/17/25 18:14 Ketorolac Tromethamine (Ketorolac Inj 30 Mg/Ml Vial) 30 mg IVP Q6HR PRN PRN Reason: Pain 6-10 Stop: 05/22/25 16:21 Ondansetron HCl (Ondansetron Inj 2 Mg/Ml Inj 2 Ml) 4 mg IVP Q6H PRN; Protocol PRN Reason: NAUSEA OR VOMITING Stop: 06/16/25 09:51 Oxycodone/Acetaminophen (Oxycodone/Apap 5/325 Tablet) 1 tab PO Q6H PRN PRN Reason: PAIN SCALE 4-6 (Moderate Stop: 05/22/25 09:51 Pantoprazole Sodium (Pantoprazole Inj 40 Mg Vial) 40 mg IVP QDAY NARCISA Stop: 06/17/25 08:59 Discontinued Medications Sodium Chloride (Ns) 1,000 mls @ 999 mls/hr IV .Q1H1M ONE Stop: 05/17/25 01:41 Last Infusion: 05/17/25 02:02 Dose: Infused Piperacillin/Tazobactam/Dextrose (Zosyn) 3.375 gm in 50 mls @ 100 mls/hr IV X1 ONE Stop: 05/17/25 01:12 Last Admin: 05/17/25 02:02 Dose: Not Given Ampicillin Sodium/Sulbactam (Sodium 1.5 gm/ Sodium Chloride) 50 mls @ 100 mls/hr IV X1 ONE Stop: 05/17/25 00:53 Last Infusion: 05/17/25 02:38 Dose: Infused Metronidazole (Flagyl 500 Mg Iv) 500 mg in 100 mls @ 200 mls/hr IV X1 ONE Stop: 05/17/25 01:23 Last Infusion: 05/17/25 01:42 Dose: Infused Ketorolac Tromethamine (Ketorolac Inj 30 Mg/Ml Vial) 15 mg IVP X1 ONE Stop: 05/17/25 00:42 Last Admin: 05/17/25 02:11 Dose: Not Given Ketorolac Tromethamine (Ketorolac Inj 30 Mg/Ml Vial) 30 mg IVP Q6HR PRN PRN Reason: Pain 6-10 Stop: 05/22/25 16:21 Morphine Sulfate (Morphine Sulf Inj 10 Mg/Ml Vial) 2 mg IVP X1 ONE Stop: 05/17/25 00:42 Last Admin: 05/17/25 02:11 Dose: Not Given Ondansetron HCl (Ondansetron Inj 2 Mg/Ml Inj 2 Ml) 4 mg IVP X1 ONE; Protocol Stop: 05/17/25 00:42 Last Admin: 05/17/25 02:11 Dose: Not Given Assessment & Plan Plan In summary, Minda Silva is a 50F with PMHx of chronic mid back pain who presented to the ER on 05/17/25 with worsening abdominal pain for three days. #Acute calculus cholecystits Ddx: hepatitis vs peptic ulcer disease Pt with RUQ pain and intermittent nausea. MRI of abdomen: Intrahepatic biliary tract dilatation. Multiple gallstones. Gallbladder wall is thickened and edematous. Common hepatic duct 5 mm, no common hepatic or common bile duct stones. Spleen is not enlarged. No dilated pancreatic duct. No peripancreatic edema. CTAP: No focal liver or splenic lesions. Gallbladder wall is significantly abnormally thickened. Common bile duct is enlarged, 9 mm. Suspicious for mild edema about the pancreas on this noncontrast study. Severe scarring right kidney moderate scarring left kidney US: Gallstones. Gallbladder wall is thickened 0.6 cm. Common bile duct 0.7 cm no stones Surgery consult: Patient to arrange for laparoscopic cholecystectomy after the pancreatitis has resolved. Labs: AST 65, ALT 338, ALP 633 No leukocytosis or fevers present. Plan: -consult GI -IV Zosyn 3.375mg Q8h -IV Flagyl 500mg x1 -IVP Zofran 4mg Q6h PRN -CBC, CMP, LFT, UA #Acute Pancreatitis Ddx: gallstone pancreatitis Pt presented with epigastric pain radiating to the back. Labs: amylase 1839, and lipase 80689, both measures highly elevated. WBC 6.4 Plan: -Repeat amylase and lipase levels -IV NS 150ml/h -IVP morphine 2mg x1 -IVP Ketorolac 30mg Q6h -PO acetaminophen Q6h PRN -PO Wilson 10/325 Q4h PRN -PO Percocet 5/325 Q6h PRN Health Maintanance: Diet: NPO PPx GI: IVP Protonix 40mg Aday PPx DVT: IV heparin 5000u Q8h Code status: full Case was discussed with attending physician, Dr. Forte, and senior resident Dr Lares. Isra Rincon, DO PGY I Attending Provider Attestation/Addendum Face to face evaluation performed. Patient has acute gallstone pancreatitis. Will refer to surgery team. Continue Pain continue, check BMP. triglyceride okay. Patient is afebrile. Discussed with housestaff.
[2025-05-17] MEDS: PIPER/TAZO 3.375 GM PREMIX 3.375 GM/50 ML BAG IV ×2 (18:25→21:40)
[2025-05-18] VITALS (16 sets, daily range): BP systolic 108–141; BP diastolic 61–82; PULSE 52–84; RESP 14–18; TEMP 36.2–37.2; O2SAT 93–100; BMI 22.0
[2025-05-18] MEDS: SODIUM CHLORIDE 0.9% 1000 ML 1,000 ML 150 ML IV (05:21)
[2025-05-18] MEDS: PIPER/TAZO 3.375 GM PREMIX 3.375 GM/50 ML BAG IV ×3 (05:27→21:30)
[2025-05-18] MEDS: HEPARIN SOD INJ 5000 UNIT/ML VIAL SC (05:27)
[2025-05-18 06:13] LABS: Basophils # (Auto) 0.0 Thou/mm3 (0.0-0.2); Basophils % (Auto) 1 % (0-2.5); Eosinophils # (Auto) 0.2 Thou/mm3 (0.0-0.5); Eosinophils % (Auto) 3 % (0-10); Hematocrit 34.4 % (36.0-46.0); Hemoglobin 10.8 g/dL (12.0-16.0); Immature Granulocytes Auto 0.02 Thou/mm3 (0.00-0.00); Lymphocytes # (Auto) 1.4 Thou/mm3 (1.0-4.8); Lymphocytes % (Auto) 29 % (10-50); Mean Corpuscular HGB Conc 31.4 g/dl (31.0-37.0); Mean Corpuscular Hemoglobin 28.5 pg (25.0-35.0); Mean Corpuscular Volume 91 fL (80-100); Monocytes # (Auto) 0.4 Thou/mm3 (0.0-0.8); Monocytes % (Auto) 9 % (0-12); Neutrophils # (Auto) 2.8 Thou/mm3 (1.8-7.7); Neutrophils % (Auto) 58 % (37-80); Nucleated Red Blood Cell # 0.00 Thou/mm3 (0.00-0.00); Nucleated Red Blood Cell % 0 /100 WBC (0); Platelet Count 163 Thou/mm3 (140-440); RDW Standard Deviation 42.8 fL (36.4-46.3); Red Blood Count 3.79 Miln/mm3 (4.00-5.20); White Blood Count 4.8 Thou/mm3 (3.6-11.0)
[2025-05-18 06:50] LABS: Alanine Aminotransferase 232 U/L (10-49); Albumin, Serum 3.5 gm/dL (3.5-5.0); Albumin/Globulin Ratio 1.3 (1.2-2.2); Alkaline Phosphatase 471 U/L (46-116); Amylase 410 U/L (30-118); Anion Gap 13 (7-16); Aspartate Amino Transferase 44 U/L (0-34); BUN/Creatinine Ratio 22 Ratio (12-20); Bilirubin,Total 0.6 mg/dL (0.3-1.2); Blood Urea Nitrogen 13 mg/dL (9-23); Calcium 8.6 mg/dL (8.3-10.6); Calcium (Corrected) 9.0 mg/dL (8.5-10.1); Carbon Dioxide 20.7 mMol/L (20.0-31.0); Chloride 112 mMol/L (98-107); Creatinine (Component) 0.6 mg/dL (0.6-1.3); Estimated Creatinine Clearance 110.6 mL/min (>60); Globulin 2.8 gm/dL (2.3-3.5); Glucose 58 mg/dL (74-106); Lipase 482 U/L (12-53); Magnesium 1.8 mg/dL (1.6-2.6); Osmolality,Calculated 288 (275-295); Phosphorous 4.7 mg/dL (2.4-5.1); Potassium 4.2 mMol/L (3.4-5.1); Sodium 146 mMol/L (136-145); Total Protein 6.3 gm/dL (5.7-8.2); eGFR > 60 See Note
[2025-05-18 09:41] LABS: C-Reactive Protein 3.0 mg/dL (0.0-0.9)
--- NOTE | 2025-05-18 11:12 | PD.IMCONS ---
HPI Data of Consult Requesting Physician: Tita Garcia MD Primary Care Provider: Vilma Ortiz NP Consult Narrative History of present illness: 50 year old Female with PMHx of HTN and chronic back pain with worsening abdominal pain . Denies nausea, vomiting, or changes to her bowel movement habitus, or loss of appetite. Denies fever, chills. Patient states that previous CT imaging by her PCP for the evaluation of her back pain a few weeks ago revealed stones in the gallbladder while showing a normal vertebral column. MRCP has been done and based on the MRCP and blood work patient has progressed on pancreatitis. GI was called to evaluate the patient for necessity of ERCP. cc:: cc: Tita Garcia MD Review of Systems Review of Systems Narrative Review of Systems: 12 systems reviewed and negative except positive pertinent symptoms and history and physical exam. Meds Home Medications and Allergies Home Medications ?Medication ?Instructions ?Recorded ?Confirmed ?Type lisinopril 5 mg tablet 5 mg PO HS 05/18/25 05/18/25 History Allergies Allergy/AdvReac Type Severity Reaction Status Date / Time cephalexin (From Keflex) Allergy Verified 05/16/25 17:53 Sulfa (Sulfonamide Allergy Verified 05/16/25 17:53 Antibiotics) Exam Vital Signs Temp Pulse Resp BP Pulse Ox O2 Del Method 97.2 F 58 L 18 110/61 97 Room Air 05/18/25 07:56 05/18/25 08:00 05/18/25 07:56 05/18/25 07:56 05/18/25 07:56 05/18/25 07:56 Routine Abdominal Exam Comments: Abdominal exam benign mild tenderness in epigastric area no rebound tenderness no sign of peritonitis no hernia no other significant finding. Results Labs 05/18/25 04:47 05/18/25 04:47 Labs: Short CBC 05/18/25 Range/Units 04:47 WBC 4.8 (3.6-11.0) Thou/mm3 Hgb 10.8 L (12.0-16.0) g/dL Hct 34.4 L (36.0-46.0) % Plt Count 163 D (140-440) Thou/mm3 BMP 05/18/25 04:47 Sodium 146 H Potassium 4.2 D Chloride 112 H Carbon Dioxide 20.7 BUN 13 Creatinine 0.6 Glucose 58 L Calcium 8.6 Liver Function 05/18/25 Range/Units 04:47 Total Bilirubin 0.6 (0.3-1.2) mg/dL AST 44 H (0-34) U/L ALT 232 H (10-49) U/L Alkaline Phosphatase 471 H D (46-116) U/L Albumin 3.5 D (3.5-5.0) gm/dL Assessment and Plan Additional Assessment & Plan Additional Plan: Assessment: Gallstone pancreatitis Cholelithiasis he has MRCP did not show any common bile duct stone Plan of care: There is no need to proceed with ERCP as patient has passed. IV fluid Proceed with cholecystectomy as per surgery team GI bleed questions.
--- NOTE | 2025-05-18 11:42 | PC.SS ---
Minda Silva is a 50-year-old female admitted to [facility] for Acute Cholecystitis. SS conducted bedside contact with the patient to complete initial assessment and to discuss discharge planning. Role and reason explained. Patient confirmed demographic information. Patient identifies mother Liya Elizondo [phone] as her surrogate decision maker. Pt states she is able to complete all ADL?s, no need for DME. Pts PCP is Dr. Ortiz. Pharmacy of choice is [facility]. Discharge options discussed and the pt wishes to return home.? Family will provide transportation upon DC. No further intervention required at this time, renal social worker would be available to address any further concerns. DC Plan: Home Contact: MomLiya? ? PCP: Vilma Ortiz
--- NOTE | 2025-05-18 13:08 | PD.SURCONS ---
HPI Consult details Consult date: 05/16/25 Reason for consultation narrative: The patient was seen on consultation on Saturday because of gallstone pancreatitis History of present illness: History of present illness revealed the patient was in her usual health until last Saturday when she started having pain in the epigastric region. She has had no such pain in the past. Patient had no vomiting. The pain persisted over the weekend but by Saturday it became worse and she came to the emergency room around 6 PM workup revealed gallstones and elevated liver enzymes as well as pancreatitis and was therefore admitted. Patient's past malignancy revealed that she had a history of hypertension. Other problem consisted of a chronic back pain which has been present for the past couple of years. Nobody has diagnosed the cause of the back pain. Patient's past surgery consisted of some surgery in the bladder due to reflux disease while she was 7 years old. She also has had a bilateral hidradenitis for which she underwent excision many years ago. She had a bilateral breast reduction done in [place] before she moved to [place]. Patient is from [place] but she lived in [place] for 24 years. Patient is and has 1 son and she lives with her daughter. Patient was diagnosed with gallstone about a month ago and a CT scan but it was not causing any pain and therefore it was advised to observation. Patient also gives history of 80 pound weight loss because of injection. Past Medical History Past Medical History CARDIAC: Positive Hypotension; Negative Congestive Heart Failure RESPIRATORY: Negative Respiratory Disorders or Chronic Obstructive Pulmonary Disease (COPD) GENITOURINARY: Negative Renal Disease ENDOCRINE: Negative Diabetes Mellitus Type 1 or Diabetes Mellitus Type 2 Social History SMOKING STATUS: Never smoker Meds Home Medications and Allergies Home Medications ?Medication ?Instructions ?Recorded ?Confirmed ?Type lisinopril 5 mg tablet 5 mg PO HS 05/18/25 05/18/25 History Allergies Allergy/AdvReac Type Severity Reaction Status Date / Time cephalexin (From Keflex) Allergy Verified 05/16/25 17:53 Sulfa (Sulfonamide Allergy Verified 05/16/25 17:53 Antibiotics) Exam Vital Signs Temp Pulse Resp BP Pulse Ox O2 Del Method 97.2 F 55 L 18 125/78 95 Room Air 05/18/25 11:51 05/18/25 12:00 05/18/25 11:51 05/18/25 11:51 05/18/25 11:51 05/18/25 11:51 Narrative Exam Physical examination revealed middle-aged white female whose 50 years old displaying 5 foot 8 inches tall with 145 pound Constitutional Constitutional: no acute distress Routine Chest/Breast/Axilla Exam Comments: Examination breast revealed surgical scar from the breast reduction Routine Abdominal Exam Comments: Considerable amount of loose skin because of the weight loss. Patient had surgical scar in the lower abdomen which was a Pfannenstiel scar Routine Rectal Exam Comments: Deferred Routine Exam Comments: Deferred Routine Extremities Exam Comments: Surgical scar under the armpit on both sides due to hidradenitis Results Results: Laboratory Laboratory Narrative: Laboratory workup showed marked elevation of the liver enzymes and dilated common bile duct. Gallbladder had multiple stones Results: Imaging Imaging narrative: MRCP was done which showed no evidence of common bile duct stone. There was some edema of the pancreas on the CT scan Assessment & Plan Additional Assessment Additional comments: Impression: Gallstone pancreatitis, resolved Possible common bile duct stone passed Persistent liver enzyme elevation Hypertension Plan Plan: Patient has had no pain since admission epigastric tenderness is improved and she is not requiring pain medication. Because she had gallstone pancreatitis she requires cholecystectomy. The patient should have the cholecystectomy now because another episode of pancreatitis can occur. The risks of the procedure including potential complications like bile duct injury or bleeding or injury to the bowel requiring further surgery etc. were discussed with the patient. Patient was told about the need for open cholecystectomy in case the laparoscopic approach fails. She is agreeable on the procedure is planned on Saturday
--- NOTE | 2025-05-18 13:09 | ESPR_ITS ---
<Statement entered by Luda De La Rosa MD - 05/19/25 07:57> In summary: 50-year-old female with no PMHx, presenting with epigastric and right upper quadrant pain radiating to the back. Patiently was seen by PCP and has been referred for general surgery for possible cholecystitis. However, she came to the ED for worsening pain. Admission vitals and labs relatively stable with the exception of: Elevated lipase, amylase, and LFTs, and ALP. CT abdomen showed enlarged common bile duct, and severe right renal scarring (chronic, patient aware of this), could not exclude stone and CBD or pancreatitis. Gallbladder ultrasound and MRCP consistent with acute calculus cholecystitis, no duct dilation. Pancreatitis resolving with IV fluids. Currently denies abdominal pain. Having regular bowel movements, but continued n.p.o. GI no longer planning ERCP given resolution pancreatitis. Underwent uncomplicated laparoscopic cholecystectomy converted to open. Will resume diet as tolerated. Case was discussed with attending physician. Luda De La Rosa DO PGY II This document was transcribed using voice recognition technology. Minor inaccuracies may be present. Documentation for date of: 05/18/25 Subjective Subjective Interval history: HPI: Pt was seen and examined at bedside. No acute events overnight. She states her original abdominal pain has resolved. Pt was feeling nausea this AM, denies vomiting. Denies loss of appetite, constipation, or diarrhea. Patient states that she has not had anything to eat in preparation for cholecystectomy in the evening. Exam Vital Signs Temp Pulse Resp BP Pulse Ox O2 Del Method 97.2 F 55 L 18 125/78 95 Room Air 05/18/25 11:51 05/18/25 12:00 05/18/25 11:51 05/18/25 11:51 05/18/25 11:51 05/18/25 11:51 Narrative Exam General: Alert and oriented x3, No apparent distress. Skin: Intact, Warm, no rashes. HEENT: Normocephalic, Atraumatic. Normal neck range of motion, Supple. Trachea midline. Respiratory: Lungs are clear to auscultation, Breath sounds are equal bilaterally with equal chest expansion. Cardiovascular: RRR, normal S1, S2, No murmurs. Distal pulses 2+ Abdomen: Soft and nontender. Normal bowel sounds. No distension. No rebound or guarding. Musculoskeletal: No swelling, moving all 4 extremities with FROM Neurologic: Alert, Oriented, No focal deficits. Moving all 4 extremities spontaneously Psych: Thoughts linear and responses appropriate. Objective Labs 05/21/25 05:17 05/21/25 05:17 Labs: Laboratory Results - last 24 hr 05/18/25 04:47 WBC 4.8 RBC 3.79 L Hgb 10.8 L Hct 34.4 L MCV 91 MCH 28.5 MCHC 31.4 RDW Std Deviation 42.8 Plt Count 163 D Neut % (Auto) 58 Lymph % (Auto) 29 [place] % (Auto) 9 Eos % (Auto) 3 Baso % (Auto) 1 Neut # (Auto) 2.8 Lymph # (Auto) 1.4 [place] # (Auto) 0.4 Eos # (Auto) 0.2 Baso # (Auto) 0.0 Immature Gran # (Auto) 0.02 H Absolute Nucleated RBC 0.00 Immature Gran % 0 Nucleated RBC % 0 Sodium 146 H Potassium 4.2 D Chloride 112 H Carbon Dioxide 20.7 Anion Gap 13 BUN 13 Creatinine 0.6 Estim Creat Clear Calc 110.6 eGFR > 60 BUN/Creatinine Ratio 22 H Glucose 58 L Calculated Osmolality 288 Calcium 8.6 Corrected Calcium 9.0 Phosphorus 4.7 Magnesium 1.8 Total Bilirubin 0.6 AST 44 H ALT 232 H Alkaline Phosphatase 471 H D C-Reactive Prot, Quant 3.0 H Total Protein 6.3 Albumin 3.5 D Globulin 2.8 Albumin/Globulin Ratio 1.3 Amylase 410 H Lipase 482 H D Quality Measures Quality Measures none Assessment & Plan Assessment Current Active Medications: Generic Name Dose Route Start Last Admin Trade Name Freq PRN Reason Stop Dose Admin Acetaminophen 650 mg 05/17/25 09:52 Acetaminophen 325 Mg Tablet PO 06/16/25 09:51 Q6H PRN PAIN SCALE 1-3 (mild Acetaminophen 650 mg 05/17/25 09:52 Acetaminophen 325 Mg Tablet PO 06/16/25 09:51 Q6H PRN Fever >100.4 Hydrocodone Bitart/Acetaminophen 1 tab 05/17/25 09:52 Hydrocodone/Apap 10/325 Tab PO 05/22/25 09:51 Q4HR PRN PAIN SCALE 7-10 (Severe Heparin Sodium (Porcine) 5,000 unit 05/17/25 14:00 05/18/25 05:27 Heparin Sod Inj 5000 Unit/Ml Vial SC 05/31/25 13:59 5,000 unit Q8HR NARCISA Administration Piperacillin/Tazobactam/Dextrose 3.375 gm in 50 mls @ 12.5 mls/hr 05/17/25 22:30 05/18/25 05:27 Zosyn IV 05/24/25 22:29 12.5 mls/hr Q8HR NARCISA Administration Dextrose/Sodium Chloride 500 mls @ 150 mls/hr 05/18/25 11:45 D5-Ns IV 06/17/25 11:44 .Q3H20M NARCISA Ketorolac Tromethamine 30 mg 05/17/25 16:26 Ketorolac Inj 30 Mg/Ml Vial IVP 05/22/25 16:21 Q6HR PRN Pain 6-10 Ondansetron HCl 4 mg 05/17/25 09:52 Ondansetron Inj 2 Mg/Ml Inj 2 Ml IVP 06/16/25 09:51 Q6H PRN NAUSEA OR VOMITING Protocol Oxycodone/Acetaminophen 1 tab 05/17/25 09:52 Oxycodone/Apap 5/325 Tablet PO 05/22/25 09:51 Q6H PRN PAIN SCALE 4-6 (Moderate Pantoprazole Sodium 40 mg 05/18/25 09:00 05/18/25 08:30 Pantoprazole Inj 40 Mg Vial IVP 06/17/25 08:59 40 mg QDAY NARCISA Administration Plan In summary, Minda Silva is a 50F with PMHx of chronic mid back pain who presented to the ER on 05/17/25 with worsening abdominal pain for three days. #Acute calculus cholecystits Ddx: choledocholithiasis vs hepatitis vs peptic ulcer disease Pt with RUQ pain and intermittent nausea. MRI of abdomen: Intrahepatic biliary tract dilatation. Multiple gallstones. Gallbladder wall is thickened and edematous. Common hepatic duct 5 mm, no common hepatic or common bile duct stones. Spleen is not enlarged. No dilated pancreatic duct. No peripancreatic edema. CTAP: No focal liver or splenic lesions. Gallbladder wall is significantly abnormally thickened. Common bile duct is enlarged, 9 mm. US: Gallstones. Gallbladder wall is thickened 0.6 cm. Common bile duct 0.7 cm no stones. Surgery consult: In the context of improved epigastric pain without pain relief, recommendation is made for cholecystectomy. Pt needs the operation immediately to prevent another episode of pancreatitis. Labs: AST 65, 44 ALT 338, 232 ALP 633, 471 (05/18) No leukocytosis or fevers present. Plan: -GI on board, planning -IV D5-NS 150ml/h -IV Zosyn 3.375mg Q8h -IV Flagyl 500mg x1 -IVP Zofran 4mg Q6h PRN -CBC, CMP, LFT, UA #Acute Pancreatitis Ddx: gallstone pancreatitis Pt presented with epigastric pain radiating to the back which has been improving without painkillers. MRCP: Suspicious for mild edema about the pancreas on this noncontrast study. Labs: amylase 1839, 482, and lipase 58371, 482 (05/18) still elevated yet stablizing. WBC 6.4, 5.6 (05/18) Plan: -Repeat amylase and lipase levels -surgery recommends -IVP morphine 2mg x1 -IVP Ketorolac 30mg Q6h -PO acetaminophen Q6h PRN -PO [place] 10/325 Q4h PRN -PO Percocet 5/325 Q6h PRN #hypernatremia Na 146 05/18, BUN/Cr 22>20 indicating dehydration. Patient was hypoglycemic in AM 05/18. Plan: IV D5-NS 150ml/h Health Maintanance: Diet: NPO PPx GI: IVP Protonix 40mg Aday PPx DVT: IV heparin 5000u Q8h Code status: full Case was discussed with attending physician, Dr. Garcia, and senior resident Dr Lares. Isra Rincon DO PGY I Attending Provider Attestation/Addendum I attest that I was physically present for the evaluation, physical examination, lab and imaging review of the patient with the residents. I discussed the case with the residents and agree with the findings and plans of care as documented above. Tita Garcia MD
[2025-05-18] MEDS: DEXTROSE 5%-NS 1,000 ML 150 ML IV (15:39)
--- NOTE | 2025-05-18 19:52 | SUR.OPER ---
Mother (Liya) updated on case status/progress via phone by Rasheed Kelsey RN at approx. 1950.
--- NOTE | 2025-05-18 20:29 | PD.SUROPNT ---
Date of Procedure 05/18/25 Pre Op Diagnosis Gallstone pancreatitis with acute cholecystitis with cholelithiasis Post Op Diagnosis Same with extensive inflammation of the gallbladder Procedure Attempted laparoscopic cholecystectomy Open cholecystectomy Findings Patient was found to have extensive inflammation of the gallbladder to which the stomach was stuck and it could not be peeled away from the gallbladder surface. Therefore open cholecystectomy was performed Procedure Description After the patient was brought to the operating room endotracheal anesthesia given. Abdomen was prepped with ChloraPrep solution and draped in a sterile manner timeout was performed. Then I made a small incision below the umbilicus and the fascia was cleaned. Veress needle was inserted and pneumoperitoneum was created up to 15 mmHg reintroduced the terminal trocar into the abdominal cavity and patient was found to have extensive inflammation of the gallbladder covered with omentum. I placed another 5 mm trocar in the epigastric region and 2 other 5 mm trocars laterally 1 in the midaxillary line under 1 midclavicular line. Gallbladder was decompressed because it could not be grasped with the retractor. Then I tried to peel of the adhesions from the gallbladder and I realized that it was so hard and would not be possible to do that therefore I immediately decided to do the open cholecystectomy. The trocars were pulled out in the fascia at the umbilicus was closed with interrupted 0 Ethibond 3 sutures. Subcutaneous tissue was closed with 3-0 plain. Standard subcostal incision was made after sponge count and instrument count abdominal cavity was entered and I realized that the gallbladder was stuck and firmly covered with the stomach. I could not separate the stomach from the gallbladder easily. At this time I bluntly dissected the stomach away from the gallbladder almost dense adhesions. Then the gallbladder fundus was reached. The gallbladder was opened at the fundus and all the stones were removed. It was very thick due to chronic inflammation. Gradually traced it to the cystic duct opening and then I was able to isolate the cystic duct and tied it with 2-0 silk. Then the gallbladder was removed leaving the posterior portion of the gallbladder attached to the liver. The bleeding at the neck of the gallbladder was suture-ligated with 2-0 chromic which is probably the cystic artery. Some of the bleeding points at the neck of the gallbladder was controlled with clips and Surgicel. Then the gallbladder bed was coagulated with Bovie and the bleeding which was oozing was stopped. 2 Surgicel was applied. At this time I wanted to make sure that I did not cause any tear in the stomach because of the dense adhesions. I asked the anesthesiologist to instill about 500 cc of methylene blue to see if there is any leak and none was found. Then I left. #15 round Jose-Rosas underneath the liver bed and sponge count was confirmed. Instrument counts were count. Abdominal cavity was closed in 2 layers using 0 PDS for the posterior rectus sheath and the peritoneum in a running fashion. Anterior rectus sheath was closed in the similar fashion. The subcu tissue was irrigated and closed with 3-0 plain and the skin was stapled together. Patient tolerated procedure well and left operating room in stable condition Anesthesia GETA Pathology / specimen Other IVF Infused 900 Estimated Blood Loss 400 Condition Stable Disposition PACU Surgeon Hudson Marcum MD Surgical Staff Operation Date: 05/18/25 18:00 Case Staff Anesthesiologist: Farhat Berry RNsupervisor veneer: Yael Collins
--- NOTE | 2025-05-18 21:04 | PD.ANESPROG ---
Documentation for date of: 05/18/25 ANESTHESIA NOTE: Patient had GETA for laparoscopic converted to open cholecystectomy this evening. She did well intra-op and is currently in PACU doing well, resting calmly, VSS, NAD. Intra-op, about 40 mg of Methylene blue mixed in about 500 cc of sterile NS was instilled via her OGT and then all suctioned out as per the surgeon's instructions. She received Zosyn earlier, no other IV antibiotics given intra-op. Farhat Berry MD Anesthesia Progress Note Progress Note Most recent Vital Signs: Last Vital Signs Temp 98.9 F 05/18/25 20:30 Pulse 79 05/18/25 20:45 Resp 18 05/18/25 20:45 BP 135/76 H 05/18/25 20:45 Pulse Ox 98 05/18/25 20:45 O2 Del Method Room Air 05/18/25 16:00 O2 Flow Rate 1 05/18/25 20:40
[2025-05-19] VITALS (7 sets, daily range): BP systolic 121–135; BP diastolic 70–86; PULSE 70–89; RESP 16–99; TEMP 36.1–36.4; O2SAT 94–100
[2025-05-19] MEDS: SODIUM CHLORIDE 0.9% 1000 ML 1,000 ML 125 ML IV (00:57)
[2025-05-19] MEDS: HEPARIN SOD INJ 5000 UNIT/ML VIAL SC ×3 (05:16→21:24)
[2025-05-19] MEDS: PIPER/TAZO 3.375 GM PREMIX 3.375 GM/50 ML BAG IV ×3 (05:16→21:24)
[2025-05-19 06:01] LABS: Basophils # (Auto) 0.0 Thou/mm3 (0.0-0.2); Basophils % (Auto) 0 % (0-2.5); Eosinophils # (Auto) 0.0 Thou/mm3 (0.0-0.5); Eosinophils % (Auto) 0 % (0-10); Hematocrit 32.8 % (36.0-46.0); Hemoglobin 10.3 g/dL (12.0-16.0); Immature Granulocytes Auto 0.08 Thou/mm3 (0.00-0.00); Lymphocytes # (Auto) 0.8 Thou/mm3 (1.0-4.8); Lymphocytes % (Auto) 7 % (10-50); Mean Corpuscular HGB Conc 31.4 g/dl (31.0-37.0); Mean Corpuscular Hemoglobin 28.4 pg (25.0-35.0); Mean Corpuscular Volume 90 fL (80-100); Monocytes # (Auto) 0.5 Thou/mm3 (0.0-0.8); Monocytes % (Auto) 4 % (0-12); Neutrophils # (Auto) 10.6 Thou/mm3 (1.8-7.7); Neutrophils % (Auto) 88 % (37-80); Nucleated Red Blood Cell # 0.00 Thou/mm3 (0.00-0.00); Nucleated Red Blood Cell % 0 /100 WBC (0); Platelet Count 190 Thou/mm3 (140-440); RDW Standard Deviation 43.1 fL (36.4-46.3); Red Blood Count 3.63 Miln/mm3 (4.00-5.20); White Blood Count 12.0 Thou/mm3 (3.6-11.0)
[2025-05-19 06:42] LABS: Alanine Aminotransferase 222 U/L (10-49); Albumin, Serum 3.5 gm/dL (3.5-5.0); Albumin/Globulin Ratio 1.3 (1.2-2.2); Alkaline Phosphatase 380 U/L (46-116); Anion Gap 13 (7-16); Aspartate Amino Transferase 74 U/L (0-34); BUN/Creatinine Ratio 13 Ratio (12-20); Bilirubin,Direct 0.2 mg/dL (0.0-0.3); Bilirubin,Total 0.4 mg/dL (0.3-1.2); Blood Urea Nitrogen 9 mg/dL (9-23); Calcium 8.6 mg/dL (8.3-10.6); Calcium (Corrected) 9.0 mg/dL (8.5-10.1); Carbon Dioxide 21.9 mMol/L (20.0-31.0); Chloride 109 mMol/L (98-107); Creatinine (Component) 0.7 mg/dL (0.6-1.3); Estimated Creatinine Clearance 94.8 mL/min (>60); Globulin 2.7 gm/dL (2.3-3.5); Glucose 135 mg/dL (74-106); Magnesium 1.7 mg/dL (1.6-2.6); Osmolality,Calculated 287 (275-295); Phosphorous 4.4 mg/dL (2.4-5.1); Potassium 4.8 mMol/L (3.4-5.1); Sodium 144 mMol/L (136-145); Total Protein 6.2 gm/dL (5.7-8.2); eGFR > 60 See Note
--- NOTE | 2025-05-19 11:04 | PD.RESPRO ---
Documentation for date of: 05/19/25 Subjective Subjective Interval history: No acute overnight events. POD 1 open cholecystectomy. On clear liquid, tolerating oral intake, ambulating independently, denies fever. Abdominal pain appears controlled. Awaiting return of bowel function. Exam Vital Signs Temp Pulse Resp BP Pulse Ox O2 Del Method O2 Flow Rate 97.3 F 72 16 121/70 95 Room Air 1 05/19/25 08:00 05/19/25 08:00 05/19/25 08:00 05/19/25 08:00 05/19/25 08:00 05/19/25 08:00 05/18/25 20:40 Narrative Exam General: Alert and oriented x3, No apparent distress. Skin: Intact, Warm, no rashes. HEENT: Normocephalic, Atraumatic. Normal neck range of motion, Supple. Trachea midline. Respiratory: Lungs are clear to auscultation, Breath sounds are equal bilaterally with equal chest expansion. Cardiovascular: RRR, normal S1, S2, No murmurs. Distal pulses 2+ Abdomen: Soft and nontender. Abdominal binder in place. Musculoskeletal: No swelling, moving all 4 extremities with FROM Neurologic: Alert, Oriented, No focal deficits. Moving all 4 extremities spontaneously Psych: Thoughts linear and responses appropriate. Objective Labs 05/20/25 05:15 05/20/25 05:15 Labs: Laboratory Results - last 24 hr 05/19/25 05:07 WBC 12.0 H D RBC 3.63 L Hgb 10.3 L Hct 32.8 L MCV 90 MCH 28.4 MCHC 31.4 RDW Std Deviation 43.1 Plt Count 190 Neut % (Auto) 88 H Lymph % (Auto) 7 L [place] % (Auto) 4 Eos % (Auto) 0 Baso % (Auto) 0 Neut # (Auto) 10.6 H Lymph # (Auto) 0.8 L [place] # (Auto) 0.5 Eos # (Auto) 0.0 Baso # (Auto) 0.0 Immature Gran # (Auto) 0.08 H Absolute Nucleated RBC 0.00 Immature Gran % 1 H Nucleated RBC % 0 Sodium 144 Potassium 4.8 D Chloride 109 H Carbon Dioxide 21.9 Anion Gap 13 BUN 9 Creatinine 0.7 Estim Creat Clear Calc 94.8 eGFR > 60 BUN/Creatinine Ratio 13 Glucose 135 H D Calculated Osmolality 287 Calcium 8.6 Corrected Calcium 9.0 Phosphorus 4.4 Magnesium 1.7 Total Bilirubin 0.4 Direct Bilirubin 0.2 AST 74 H ALT 222 H Alkaline Phosphatase 380 H D Total Protein 6.2 Albumin 3.5 Globulin 2.7 Albumin/Globulin Ratio 1.3 Quality Measures Quality Measures none Assessment & Plan Assessment Current Active Medications: Generic Name Dose Route Start Last Admin Trade Name Freq PRN Reason Stop Dose Admin Acetaminophen 650 mg 05/17/25 09:52 Acetaminophen 325 Mg Tablet PO 06/16/25 09:51 Q6H PRN PAIN SCALE 1-3 (mild Acetaminophen 650 mg 05/17/25 09:52 Acetaminophen 325 Mg Tablet PO 06/16/25 09:51 Q6H PRN Fever >100.4 Heparin Sodium (Porcine) 5,000 unit 05/17/25 14:00 05/19/25 05:16 Heparin Sod Inj 5000 Unit/Ml Vial SC 05/31/25 13:59 5,000 unit Q8HR NARCISA Administration Piperacillin/Tazobactam/Dextrose 3.375 gm in 50 mls @ 12.5 mls/hr 05/17/25 22:30 05/19/25 05:16 Zosyn IV 05/24/25 22:29 12.5 mls/hr Q8HR NARCISA Administration Sodium Chloride 1,000 mls @ 125 mls/hr 05/18/25 21:21 05/19/25 00:57 Ns IV 06/17/25 21:20 125 mls/hr .Q8H NARCISA Administration Morphine Sulfate 4 mg 05/18/25 22:25 Morphine Sulf Inj 10 Mg/Ml Vial IVP 05/23/25 21:20 Q4HR PRN PAIN SCALE 4-10(Mod-Sev Ondansetron HCl 4 mg 05/18/25 21:21 Ondansetron Inj 2 Mg/Ml Inj 2 Ml IVP 06/17/25 21:20 Q4HR PRN NAUSEA OR VOMITING Pantoprazole Sodium 40 mg 05/18/25 09:00 05/19/25 08:26 Pantoprazole Inj 40 Mg Vial IVP 06/17/25 08:59 40 mg QDAY NARCISA Administration Plan In summary, Minda Silva is a 50F with PMHx of chronic mid back pain who presented to the ER on 05/17/25 with worsening abdominal pain for three days. #Acute calculus cholecystits POD 1 open cholecystectomy Ddx: choledocholithiasis vs hepatitis vs peptic ulcer disease Pt with RUQ pain and intermittent nausea. MRI of abdomen: Intrahepatic biliary tract dilatation. Multiple gallstones. Gallbladder wall is thickened and edematous. Common hepatic duct 5 mm, no common hepatic or common bile duct stones. Spleen is not enlarged. No dilated pancreatic duct. No peripancreatic edema. CTAP: No focal liver or splenic lesions. Gallbladder wall is significantly abnormally thickened. Common bile duct is enlarged, 9 mm. US: Gallstones. Gallbladder wall is thickened 0.6 cm. Common bile duct 0.7 cm no stones. Surgery consult: In the context of improved epigastric pain without pain relief, recommendation is made for cholecystectomy. Pt needs the operation immediately to prevent another episode of pancreatitis. Labs: AST 65, 44 ALT 338, 232 ALP 633, 471 (05/18) Cholecystectomy was uncomplicated, although converted to open secondary to severe liver adhesions and inflammations. Tolerated procedure well. Pain appears controlled. Ambulating independently. Tolerating clear liquid diet. Awaiting bowel function return. Has mild leukocytosis likely reactive. Remains afebrile. ? Continue ZOSYN (05/18 to present) ? Pain control, ANTIEMETICS ? Daily labs #Acute Pancreatitis (resolved) Ddx: gallstone pancreatitis Pt presented with epigastric pain radiating to the back which has been improving without painkillers. MRCP: Suspicious for mild edema about the pancreas on this noncontrast study. Labs: amylase 1839, 482, and lipase 73656, 482 (05/18) still elevated yet stablizing. WBC 6.4, 5.6 (05/18) Plan: ? Pain control ? Continue IVF's ? Advance diet as tolerated #hypernatremia (resolved) Na 146 05/18, BUN/Cr 22>20 indicating dehydration. Patient was hypoglycemic in AM 05/18. Plan: ? IV D5-NS 150ml/h ? Daily labs Health Maintanance: Diet: Clear liquid, advance as tolerated PPx GI: IVP Protonix 40mg Aday PPx DVT: IV heparin 5000u Q8h Code status: full Case was discussed with attending physician. Luda De La Rosa DO PGY II This document was transcribed using voice recognition technology. Minor inaccuracies may be present. Attending Provider Attestation/Addendum I have examined the patient, reviewed labs and imaging findings, discussed the case with the resident(s), and reviewed entered orders. I agree with the plan of care as outlined in this note. Dr. Rikki MD
--- NOTE | 2025-05-19 14:24 | PC.PT ---
Patient was approached at ~1000. As per patient, she is able to ambulate to the restroom and back without problems. RN is at bedside when this PT was with the patient. Will cancel PT evaluation. Skilled PT not indicated at this time. Ordering Physician made aware.
--- NOTE | 2025-05-19 16:05 | PC.SS ---
Rounding: pending Judy clearance and increase diet, DC plan home
--- NOTE | 2025-05-19 19:13 | ESPR_ITS ---
Documentation for date of: 05/19/25 Subjective Subjective Brief History: History of present illness revealed the patient was in her usual health until last Saturday when she started having pain in the epigastric region. She has had no such pain in the past. Patient had no vomiting. The pain persisted over the weekend but by Saturday it became worse and she came to the emergency room around 6 PM workup revealed gallstones and elevated liver enzymes as well as pancreatitis and was therefore admitted. Patient's past malignancy revealed that she had a history of hypertension. Other problem consisted of a chronic back pain which has been present for the past couple of years. Nobody has diagnosed the cause of the back pain. Patient's past surgery consisted of some surgery in the bladder due to reflux disease while she was 7 years old. She also has had a bilateral hidradenitis for which she underwent excision many years ago. She had a bilateral breast reduction done in [place] before she moved to [place]. Patient is from [place] but she lived in [place] for 24 years. Patient is and has 1 son and she lives with her daughter. Patient was diagnosed with gallstone about a month ago and a CT scan but it was not causing any pain and therefore it was advised to observation. Patient also gives history of 80 pound weight loss because of injection. Narrative: Patient was seen today after surgery. She seems to be comfortable the [place]- Rosas is not draining much Exam Vital Signs Temp Pulse Resp BP Pulse Ox O2 Del Method O2 Flow Rate 97.0 F 75 18 129/78 99 Room Air 1 05/19/25 16:00 05/19/25 16:00 05/19/25 16:05/19/25 16:05/19/25 16:05/19/25 16:05/18/25 20:40 Vital signs are normal Routine Abdominal Exam Comments: Abdominal examination is negative Results Results: Laboratory Laboratory Narrative: Laboratory results show decreasing liver enzymes. Her hemoglobin is stable Assessment & Plan Assessment Additional comments: Impression: Stable postoperative course following open cholecystectomy Plan Plan: We shall monitor her hemoglobin and liver function test. Keep her here for at least 2 more days before discharging. PROCEDURES: Procedures Attempted laparoscopic cholecystectomy Open cholecystectomy
[2025-05-19] MEDS: MORPHINE SULF INJ 10 MG/ML VIAL 4 MG IVP (19:35)
[2025-05-19] MEDS: SODIUM CHLORIDE 0.9% 1000 ML 1,000 ML 75 ML IV (23:45)
[2025-05-20] VITALS (9 sets, daily range): BP systolic 134–153; BP diastolic 75–87; PULSE 70–82; RESP 16–99; TEMP 36.1–36.8; O2SAT 96–100; BMI 22.3
[2025-05-20] MEDS: HEPARIN SOD INJ 5000 UNIT/ML VIAL SC ×2 (05:33→22:03)
[2025-05-20] MEDS: PIPER/TAZO 3.375 GM PREMIX 3.375 GM/50 ML BAG IV ×3 (05:33→22:03)
[2025-05-20 06:33] LABS: Basophils # (Auto) 0.0 Thou/mm3 (0.0-0.2); Basophils % (Auto) 0 % (0-2.5); Eosinophils # (Auto) 0.1 Thou/mm3 (0.0-0.5); Eosinophils % (Auto) 1 % (0-10); Hematocrit 28.0 % (36.0-46.0); Hemoglobin 9.0 g/dL (12.0-16.0); Immature Granulocytes Auto 0.02 Thou/mm3 (0.00-0.00); Lymphocytes # (Auto) 1.5 Thou/mm3 (1.0-4.8); Lymphocytes % (Auto) 24 % (10-50); Mean Corpuscular HGB Conc 32.1 g/dl (31.0-37.0); Mean Corpuscular Hemoglobin 28.8 pg (25.0-35.0); Mean Corpuscular Volume 90 fL (80-100); Monocytes # (Auto) 0.7 Thou/mm3 (0.0-0.8); Monocytes % (Auto) 11 % (0-12); Neutrophils # (Auto) 4.0 Thou/mm3 (1.8-7.7); Neutrophils % (Auto) 63 % (37-80); Nucleated Red Blood Cell # 0.00 Thou/mm3 (0.00-0.00); Nucleated Red Blood Cell % 0 /100 WBC (0); Platelet Count 169 Thou/mm3 (140-440); RDW Standard Deviation 42.5 fL (36.4-46.3); Red Blood Count 3.13 Miln/mm3 (4.00-5.20); White Blood Count 6.3 Thou/mm3 (3.6-11.0)
[2025-05-20 07:00] LABS: Alanine Aminotransferase 145 U/L (10-49); Albumin, Serum 3.2 gm/dL (3.5-5.0); Albumin/Globulin Ratio 1.2 (1.2-2.2); Alkaline Phosphatase 276 U/L (46-116); Anion Gap 10 (7-16); Aspartate Amino Transferase 38 U/L (0-34); BUN/Creatinine Ratio 12 Ratio (12-20); Bilirubin,Total 0.5 mg/dL (0.3-1.2); Blood Urea Nitrogen 6 mg/dL (9-23); Calcium 8.3 mg/dL (8.3-10.6); Calcium (Corrected) 8.9 mg/dL (8.5-10.1); Carbon Dioxide 26.1 mMol/L (20.0-31.0); Chloride 109 mMol/L (98-107); Creatinine (Component) 0.5 mg/dL (0.6-1.3); Estimated Creatinine Clearance 132.8 mL/min (>60); Globulin 2.6 gm/dL (2.3-3.5); Glucose 114 mg/dL (74-106); Magnesium 1.6 mg/dL (1.6-2.6); Osmolality,Calculated 287 (275-295); Phosphorous 2.3 mg/dL (2.4-5.1); Potassium 3.7 mMol/L (3.4-5.1); Sodium 145 mMol/L (136-145); Total Protein 5.8 gm/dL (5.7-8.2); eGFR > 60 See Note
[2025-05-20] MEDS: POTASSIUM PHOS 22.5 MMOL in SODIUM CHLORIDE 0.9% 500 ML 500 ML 82.778 MMOL IV (10:56)
--- NOTE | 2025-05-20 14:48 | ESPR_ITS ---
<Statement entered by Luda De La Rosa MD - 05/20/25 15:13> In summary, 48-year-old female with no relevant PMHx, admitted for acute calculus cholecystitis, POD 2 open cholecystectomy. On clear liquids, tolerating oral intake, awaiting return of bowel function. Ambulate independently, pain relatively controlled. General surgery recommended monitoring for another day. Will likely discharge tomorrow 05/21/2025 if stable and tolerating oral intake. Case was discussed with attending physician. Luda De La Rosa DO PGY II This document was transcribed using voice recognition technology. Minor inaccuracies may be present. Documentation for date of: 05/20/25 Subjective Subjective Interval history: Patient was seen and evaluated at bedside. No acute events overnight. Patient reports mild to moderate left-sided abdominal pain on POD?day 2. Denies nausea or vomiting. Denies having had bowel movements or passed flatus since surgery. Denies fevers. The site of heparin injections at the left shoulder hurts. Exam Vital Signs Temp Pulse Resp BP Pulse Ox O2 Del Method O2 Flow Rate 97.2 F 78 17 144/77 H 100 Room Air 1 05/20/25 12:00 05/20/25 12:00 05/20/25 12:05/20/25 12:05/20/25 12:00 05/20/25 12:00 05/18/25 20:40 Narrative Exam General: Alert and oriented x3, No apparent distress. Skin: Intact, Warm, no rashes. HEENT: Normocephalic, Atraumatic. Normal neck range of motion, Supple. Trachea midline. Respiratory: Lungs are clear to auscultation, Breath sounds are equal bilaterally with equal chest expansion. Cardiovascular: RRR, normal S1, S2, No murmurs. Distal pulses 2+ Abdomen: Soft and nontender. Abdominal binder in place. Musculoskeletal: No swelling, moving all 4 extremities with FROM Neurologic: Alert, Oriented, No focal deficits. Moving all 4 extremities spontaneously Psych: Thoughts linear and responses appropriate. Objective Labs 05/21/25 05:17 05/21/25 05:17 Labs: Laboratory Results - last 24 hr 05/20/25 05:15 WBC 6.3 D RBC 3.13 L Hgb 9.0 L Hct 28.0 L MCV 90 MCH 28.8 MCHC 32.1 RDW Std Deviation 42.5 Plt Count 169 Neut % (Auto) 63 Lymph % (Auto) 24 [place] % (Auto) 11 Eos % (Auto) 1 Baso % (Auto) 0 Neut # (Auto) 4.0 Lymph # (Auto) 1.5 [place] # (Auto) 0.7 Eos # (Auto) 0.1 Baso # (Auto) 0.0 Immature Gran # (Auto) 0.02 H Absolute Nucleated RBC 0.00 Immature Gran % 0 Nucleated RBC % 0 Sodium 145 Potassium 3.7 D Chloride 109 H Carbon Dioxide 26.1 Anion Gap 10 BUN 6 L Creatinine 0.5 L Estim Creat Clear Calc 132.8 eGFR > 60 BUN/Creatinine Ratio 12 Glucose 114 H Calculated Osmolality 287 Calcium 8.3 Corrected Calcium 8.9 Phosphorus 2.3 L Magnesium 1.6 Total Bilirubin 0.5 AST 38 H ALT 145 H Alkaline Phosphatase 276 H D Total Protein 5.8 Albumin 3.2 L Globulin 2.6 Albumin/Globulin Ratio 1.2 Quality Measures Quality Measures none Assessment & Plan Assessment Current Active Medications: Generic Name Dose Route Start Last Admin Trade Name Freq PRN Reason Stop Dose Admin Acetaminophen 650 mg 05/17/25 09:52 Acetaminophen 325 Mg Tablet PO 06/16/25 09:51 Q6H PRN PAIN SCALE 1-3 (mild Acetaminophen 650 mg 05/17/25 09:52 Acetaminophen 325 Mg Tablet PO 06/16/25 09:51 Q6H PRN Fever >100.4 Heparin Sodium (Porcine) 5,000 unit 05/17/25 14:00 05/20/25 14:39 Heparin Sod Inj 5000 Unit/Ml Vial SC 05/31/25 13:59 Not Given Q8HR NARCISA Piperacillin/Tazobactam/Dextrose 3.375 gm in 50 mls @ 12.5 mls/hr 05/17/25 22:30 05/20/25 14:38 Zosyn IV 05/24/25 22:29 12.5 mls/hr Q8HR NARCISA Administration Sodium Chloride 1,000 mls @ 75 mls/hr 05/19/25 13:14 05/19/25 23:45 Ns IV 06/18/25 13:13 75 mls/hr .[id number] NARCISA Administration Potassium Phosphate 22.5 mmol/ 507.5 mls @ 82.778 mls/hr 05/20/25 08:48 05/20/25 10:56 Sodium Chloride IV 05/20/25 14:55 82.778 mls/hr X1 ONE Administration Morphine Sulfate 4 mg 05/18/25 22:25 05/19/25 19:35 Morphine Sulf Inj 10 Mg/Ml Vial IVP 05/23/25 21:20 4 mg Q4HR PRN Administration PAIN SCALE 4-10(Mod-Sev Ondansetron HCl 4 mg 05/18/25 21:21 Ondansetron Inj 2 Mg/Ml Inj 2 Ml IVP 06/17/25 21:20 Q4HR PRN NAUSEA OR VOMITING Pantoprazole Sodium 40 mg 05/18/25 09:00 05/20/25 10:56 Pantoprazole Inj 40 Mg Vial IVP 06/17/25 08:59 40 mg QDAY NARCISA Administration Plan In summary, Minda Silva is a 50F with PMHx of chronic mid back pain who presented to the ER on 05/17/25 with worsening abdominal pain for three days. #Acute calculus cholecystits POD 2 open cholecystectomy Ddx: choledocholithiasis vs hepatitis vs peptic ulcer disease Pt with RUQ pain and intermittent nausea on presentation. MRI of abdomen: Intrahepatic biliary tract dilatation. Multiple gallstones. Gallbladder wall is thickened and edematous. Common hepatic duct 5 mm, no common hepatic or common bile duct stones. Spleen is not enlarged. No dilated pancreatic duct. No peripancreatic edema. CTAP: No focal liver or splenic lesions. Gallbladder wall is significantly abnormally thickened. Common bile duct is enlarged, 9 mm. US: Gallstones. Gallbladder wall is thickened 0.6 cm. Common bile duct 0.7 cm no stones. Surgery consult: In the context of improved epigastric pain without pain relief, recommendation is made for cholecystectomy. Pt needs the operation immediately to prevent another episode of pancreatitis. Labs: LFTs downtrending. ALP 276, ALT 145, AST 38, (05/20) Cholecystectomy was uncomplicated, although converted to open secondary to severe liver adhesions and inflammations. Tolerated procedure well. Pain appears controlled. Ambulating independently. Tolerating clear liquid diet. Awaiting bowel function return. Has mild leukocytosis likely reactive. Remains afebrile. ? Continue ZOSYN (05/18 to present) ? Pain control, ANTIEMETICS -Bowel regiment with polyethylene glycol 17 mg daily ? Daily labs ?Lidocaine patch to be applied at the site of heparin injections on the left shoulder for pain #Acute Pancreatitis (resolved) Ddx: gallstone pancreatitis Pt presented with epigastric pain radiating to the back which has been improving without painkillers. MRCP: Suspicious for mild edema about the pancreas on this noncontrast study. Labs: amylase 1839, 482, and lipase 02091, 482 (05/18) still elevated yet stablizing. WBC 6.4, 5.6 (05/18) Plan: ? Pain control ? Continue IVF's ? Advance diet as tolerated #hypernatremia (resolved) Na 146 05/18, BUN/Cr 22>20 indicating dehydration. Patient was hypoglycemic in AM 05/18. Plan: ? IV D5-NS 150ml/h ? Daily labs Health Maintanance: Diet: Clear liquid, advance as tolerated PPx GI: IVP Protonix 40mg Aday PPx DVT: IV heparin 5000u Q8h Code status: full Case was discussed with attending physician, Dr. Brandt, and senior resident Rj. Isra Rincon DO PGY I Case was discussed with attending physician. Luda De La Rosa DO PGY II This document was transcribed using voice recognition technology. Minor inaccuracies may be present. Attending Provider Attestation/Addendum I have examined the patient, reviewed labs and imaging findings, discussed the case with the resident(s), and reviewed entered orders. I agree with the plan of care as outlined in this note, with these additional summaries/recommendations: Patient seen at bedside. No acute overnight events. Patient is postoperative day #2 status post open cholecystectomy. Patient reports pain is currently controlled although she has not yet had a bowel movement or passed gas. We will continue to monitor symptoms before patient can be safely discharged. We will continue antibiotic for now. Patient was also found to have acute pancreatitis on admission and evaluated by gastroenterology who reported stone has already passed and no intervention needed at this time. Continue antiemetics as needed. Patient updated on the plan and in agreement. Please see residents note for additional details and management. Dr. Rikki MD
--- NOTE | 2025-05-20 15:30 | PC.NURSE ---
DR. LUIS AT BEDSIDE, REMOVED KULWINDER DRAIN, POC DISCUSSED WITH PT.
--- NOTE | 2025-05-20 15:55 | PC.SS ---
Rounding: Per Dr. Kim monitor overnight, poss DC 05/21
[2025-05-20] MEDS: ACETAMINOPHEN 325 MG TABLET 650 MG PO (17:19)
[2025-05-20] MEDS: POLYETHYLENE GLYCOL 17 GM PACKET PO (17:19)
[2025-05-21] VITALS: BP 126/77; PULSE 79; PULSE 84; RESP 17; TEMP 36.4; O2SAT 97
[2025-05-21 04:00] VITALS: BP 123/74; PULSE 75; PULSE 78; RESP 17; TEMP 36.5; O2SAT 97
[2025-05-21] MEDS: HEPARIN SOD INJ 5000 UNIT/ML VIAL SC (05:46)
[2025-05-21] MEDS: PIPER/TAZO 3.375 GM PREMIX 3.375 GM/50 ML BAG IV (05:46)
[2025-05-21] MEDS: ACETAMINOPHEN 325 MG TABLET 650 MG PO (05:46)
[2025-05-21 06:00] VITALS: BMI 22.3
[2025-05-21 06:03] LABS: Basophils # (Auto) 0.0 Thou/mm3 (0.0-0.2); Basophils % (Auto) 1 % (0-2.5); Eosinophils # (Auto) 0.2 Thou/mm3 (0.0-0.5); Eosinophils % (Auto) 4 % (0-10); Hematocrit 25.4 % (36.0-46.0); Immature Granulocytes Auto 0.03 Thou/mm3 (0.00-0.00); Lymphocytes # (Auto) 1.5 Thou/mm3 (1.0-4.8); Lymphocytes % (Auto) 29 % (10-50); Mean Corpuscular HGB Conc 32.3 g/dl (31.0-37.0); Mean Corpuscular Hemoglobin 28.8 pg (25.0-35.0); Mean Corpuscular Volume 89 fL (80-100); Monocytes # (Auto) 0.5 Thou/mm3 (0.0-0.8); Monocytes % (Auto) 10 % (0-12); Neutrophils # (Auto) 2.9 Thou/mm3 (1.8-7.7); Neutrophils % (Auto) 56 % (37-80); Nucleated Red Blood Cell # 0.00 Thou/mm3 (0.00-0.00); Nucleated Red Blood Cell % 0 /100 WBC (0); Platelet Count 156 Thou/mm3 (140-440); RDW Standard Deviation 42.5 fL (36.4-46.3); Red Blood Count 2.85 Miln/mm3 (4.00-5.20); White Blood Count 5.2 Thou/mm3 (3.6-11.0)
[2025-05-21 06:11] LABS: Hemoglobin 8.2 g/dL (12.0-16.0)
[2025-05-21 06:41] LABS: Alanine Aminotransferase 112 U/L (10-49); Albumin, Serum 3.2 gm/dL (3.5-5.0); Albumin/Globulin Ratio 1.3 (1.2-2.2); Alkaline Phosphatase 229 U/L (46-116); Anion Gap 11 (7-16); Aspartate Amino Transferase 24 U/L (0-34); BUN/Creatinine Ratio 10 Ratio (12-20); Bilirubin,Total 0.4 mg/dL (0.3-1.2); Blood Urea Nitrogen < 5 mg/dL (9-23); Calcium 8.6 mg/dL (8.3-10.6); Calcium (Corrected) 9.2 mg/dL (8.5-10.1); Carbon Dioxide 29.5 mMol/L (20.0-31.0); Chloride 107 mMol/L (98-107); Creatinine (Component) 0.5 mg/dL (0.6-1.3); Estimated Creatinine Clearance 132.8 mL/min (>60); Globulin 2.5 gm/dL (2.3-3.5); Glucose 108 mg/dL (74-106); Magnesium 1.4 mg/dL (1.6-2.6); Osmolality,Calculated 290 (275-295); Phosphorous 3.6 mg/dL (2.4-5.1); Potassium 3.5 mMol/L (3.4-5.1); Sodium 147 mMol/L (136-145); Total Protein 5.7 gm/dL (5.7-8.2); eGFR > 60 See Note
[2025-05-21 08:15] VITALS: BP 140/75; PULSE 74; RESP 16; TEMP 36.6; O2SAT 95
[2025-05-21] MEDS: MAGNESIUM OXIDE 400 MG TABLET PO (09:57)
[2025-05-21] MEDS: POLYETHYLENE GLYCOL 17 GM PACKET PO (10:08)
--- NOTE | 2025-05-21 15:09 | PC.SS ---
rounding note: Patient to d/c today
--- NOTE | 2025-05-21 15:39 | ESDS_ITS ---
<Statement entered by Luda De La Rosa MD - 05/21/25 17:29> In summary, pleasant 48-year-old female with no relevant PMHx, admitted for acute pancreatitis and acute calculus cholecystitis. She is started on IV fluids and pain control for pancreatitis, which have improved by day 2. Subsequently scheduled for lap nusrat which was converted to open cholecystectomy given extensive liver adhesions and inflammatory changes. Overall tolerated procedure well, no surgical complications, tolerating oral intake without nausea or vomiting, ambulating independently, passing flatus, bowel sounds were present in all quadrants. General surgery felt comfortable discharging prior to having a bowel movement. We've advised return to the ED if no bowel movements over the next few days or in case of worsening pain, new nausea or vomiting, or fever. She was discharged on 5 days of AUGMENTIN and MIRALAX as needed for constipation. She will follow-up with general surgery within 1-2 weeks of discharge for kurtis removal. Of note: There was concern by external pharmacy in regard to ANTIBIOTIC allergy. There is reported allergy to CLINDAMYCIN, CEPHALEXIN, and SULFA DRUGS. She has been on ZOSYN inpatient, tolerated well without signs of allergy reaction. We don't anticipate allergy to AUGMENTIN given that it is within the same class. However advised to discontinue ANTIBIOTICS for suspected allergy, return to ED for severe symptoms or anaphylaxis reaction. Case was discussed with attending physician. Luda De La Rosa DO PGY II Planned Discharge Date 05/21/25 DS: Providers Provider Date of admission: 05/17/25 09:52 Primary care physician: Vilma Ortiz NP Admitting Provider: Bg Forte MD Attending Provider on Admission: Thompson Brandt MD Consults: 05/17/25 09:00 Consult to General Surgery Stat Comment: Consulting Provider: Hudson Marcum 05/17/25 09:57 Consult to Gastroenterology Stat Comment: Acute Cholecytitis, MRCP neg, pancreatitis Consulting Provider: Jose Beckford Attending Provider on DC: Thompson Brandt MD Discharging Provider: Thompson Brandt MD DS: Diagnosis Problem List Completed Was Problem List Reviewed/Reconciled?: Yes Hospital Course Hospital Course Hospital course: Minda Silva is a 50 yo female with PMHx of HTN, and chronic back pain who presented to the ED on 05/17/2025 with worsening abdominal pain for 3 days. On initial labs, lipase 30,888, amylase 1839 which together with the pattern of the presentation pain already met criteria for prelimimary acute pancreatitis. Imaging revealed stones inside the gallbladder, thickened and edematous gallbladder wall, but no peripancreatic edema. ALT 338, ALP 633 characteristic of an obstructive jaundice. Patient was placed on IV fluids, antibiotics, antiemetics, and pain relief. Surgery recommended laparoscopic cholecystectomy once pancreatitis resolved. Markers thereof down trended and when laparoscopic cholecystectomy could not be followed through, the pathologic gallbladder was removed through open abdominal surgery. Post cholecystectomy on postop day 2 patient is able to pass flatus. At time of discharge, patient is medically stable and safe to return to the previous conditions of life. IMAGE FINDINGS: * MRI of abdomen: Intrahepatic biliary tract dilatation. Multiple gallstones. Gallbladder wall is thickened and edematous. Common hepatic duct 5 mm, no common hepatic or common bile duct stones. Spleen is not enlarged. No dilated pancreatic duct. No peripancreatic edema. * CTAP: No focal liver or splenic lesions. Gallbladder wall is significantly abnormally thickened. Common bile duct is enlarged, 9 mm. Suspicious for mild edema about the pancreas on this noncontrast study. Severe scarring right kidney moderate scarring left kidney * US: Gallstones. Gallbladder wall is thickened 0.6 cm. Common bile duct 0.7 cm no stones PATIENT INSTRUCTIONS: * Follow-up with PCP within 1-2 weeks of discharge. * Follow-up with General Surgery, Dr. Marcum, for stable removal within 1-2 weeks of discharge. * Continue taking AUGMENTIN 500-125 mg three times daily for 5 more days. * Take MIRALAX 1 scope daily as needed for constipation. * Continue taking medications as prescribed below. * Return to ED or call your surgeon if you do not have a bowel movement after 3 days from discharge, or if abdominal pain is worsening, or nausea or vomiting or fever. * Return to Emergency Room if symptoms persist, worsen, or new symptoms develop. ADMISSION DIAGNOSES: # Acute calculus cholecystitis #Acute pancreatitis Case was discussed with attending physician. Luda De La Rosa DO PGY II Case was discussed with attending physician, Dr. Brandt, and senior resident Dr De La Rosa. Isra Rincon DO PGY I This document was transcribed using voice recognition technology. Minor inaccuracies may be present. Time Spent with Patient Time attestation: Total time spent providing and/or coordinating discharge services: Time spent: Greater than 30 minutes Exam Vital Signs Temp Pulse Resp BP Pulse Ox O2 Del Method O2 Flow Rate 97.8 F 74 16 140/75 H 95 Room Air 1 05/21/25 08:15 05/21/25 08:15 05/21/25 08:15 05/21/25 08:15 05/21/25 08:15 05/21/25 08:15 05/18/25 20:40 Narrative Exam General: Alert and oriented x3, No apparent distress. Skin: Intact, Warm, no rashes. HEENT: Normocephalic, Atraumatic. Normal neck range of motion, Supple. Trachea midline. Respiratory: Lungs are clear to auscultation, Breath sounds are equal bilaterally with equal chest expansion. Cardiovascular: RRR, normal S1, S2, No murmurs. Distal pulses 2+ Abdomen: Soft and nontender. Surgical kurtis at the site of incision. The site of surgical incision has some blood clot smear at its vicinity without erythema or dehiscence or purulence. Musculoskeletal: No swelling, moving all 4 extremities with FROM Neurologic: Alert, Oriented, No focal deficits. Moving all 4 extremities spontaneously Psych: Thoughts linear and responses appropriate. Discharge Plan Plan Patient Disposition: HOME (Self Care) Patient condition on transfer: Stable Care Plan Goals: * Follow-up with PCP within 1-2 weeks of discharge. * Follow-up with General Surgery, Dr. Marcum, for stable removal within 1-2 weeks of discharge. * Continue taking AUGMENTIN 500-125 mg three times daily for 5 more days. * Take MIRALAX 1 scope daily as needed for constipation. * Continue taking medications as prescribed below. * Return to ED or call your surgeon if you do not have a bowel movement after 3 days from discharge, or if abdominal pain is worsening, or nausea or vomiting or fever. * Return to Emergency Room if symptoms persist, worsen, or new symptoms develop. Prescriptions/Referrals Prescriptions/Med Rec: New amoxicillin-pot clavulanate [Augmentin] 500-125 mg tablet 1 tab PO TID 5 Days Qty: 15 0RF polyethylene glycol 3350 [Miralax] 17 gram/dose powder 4 g PO QDAY Qty: 238 0RF Continued tramadol-acetaminophen 37.5-325 mg tablet 1 tab PO BID PRN (Reason: pain) Qty: 20 0RF cyclobenzaprine 10 mg tablet 10 mg PO TID PRN (Reason: muscle spasm) Qty: 20 0RF lisinopril 5 mg tablet 5 mg PO HS Referrals: Vilma Ortiz NP [Primary Care Provider] - Hudson Marcum MD [Physician] - Patient/Caregiver Discharge Instructions Education Materials: Ileus, Cholecystectomy, Pancreatitis Acute Dc Print Language: Taiwanese Stand Alone Forms: [employer] Award Info., Patient Portal Info Letter Discharge Order Discharge Orders: Discharge (Routine); Ordered 05/21/25 Ordered By: Luda De La Rosa Quality Discharge Quality Measures VTE prophylaxis MD Attestestation MD Attestation I have examined the patient, reviewed labs and imaging findings, discussed the case with the resident(s), and reviewed entered orders. I agree with the plan of care as outlined in this note. Time Spent: [address] Rikki MD
== END 2025-05-21 11:42 | disposition home or self-care (01) | DRG 263 ==
LOC: SERX 05-17 09:38 → SERHOLD 05-17 10:05 → S3SX 05-17 20:51
PROVIDERS: Emergency Medicine; Nurse Practitioner Family; Surgery; Admitting Provider Internal Medicine; Emergency Provider Family Medicine; PCP Nurse Practitioner Family; Visit Provider Student in an Organized Health Care Education/Training Program
PROC: 0FT44ZZ Resection of Gallbladder, Percutaneous Endoscopic Approach (ICD-10-PCS; CPT 47562; principal; 2025-05-18 18:00)
PROC: 0FT40ZZ Resection of Gallbladder, Open Approach (ICD-10-PCS; CPT 47600; 2025-05-18 18:00)
DX: K80.00 Calculus of gallbladder with acute cholecystitis without obstruction (principal); K85.90 Acute pancreatitis without necrosis or infection, unspecified; K75.9 Inflammatory liver disease, unspecified; K85.10 Biliary acute pancreatitis without necrosis or infection; E87.0 Hyperosmolality and hypernatremia; G89.29 Other chronic pain; I10 Essential (primary) hypertension; K82.8 Other specified diseases of gallbladder; E86.0 Dehydration; K21.9 Gastro-esophageal reflux disease without esophagitis; K66.0 Peritoneal adhesions (postprocedural) (postinfection); Z53.31 Laparoscopic surgical procedure converted to open procedure; Z88.2 Allergy status to sulfonamides; Z88.1 Allergy status to other antibiotic agents
CPT/HCPCS: 36415; 74176; 76705; 80053; 80076; 80320; 81001; 81025; 82150; 82248; 83690; 83735; 84100; 84478; 85025; 85610; 85730; 86140; 93225; 96361; 96365; 96366; 96372; 96375; 99285; A4217; A4649; J0131; J0295; J1100; J1171; J1644; J2270; J2371; J2405; J2470; J2543; J2704; J2710; J3010; J3490; J7030; J7042; J7050; J7999; Q9968; S8037; 74181; A9270; G0480; J1596; J1805; J1836